=== PATIENT | male | born 1960 | race African-American/Black ===

== ENCOUNTER 2016-06-04 08:54 | Day surgery (SDC) | payer MEDICAID ==
[2016-05-26 09:27] LABS: ABSOLUTE BASOPHILS # (AUTO) 0.1 10^3/uL (0.0-0.2); ABSOLUTE EOSINOPHILS # (AUTO) 0.4 10^3/uL (0.0-0.6); ABSOLUTE LYMPHOCYTES (AUTO) 2.2 10^3/uL (0.5-4.7); ABSOLUTE MONOCYTES (AUTO) 0.6 10^3/uL (0.1-1.4); ABSOLUTE NEUT (AUTO) 4.1 10^3/uL (1.7-8.2); BASOPHILS % (AUTO) 1.3 % (0-2); EOSINOPHILS % (AUTO) 5.5 % (0-6); HEMATOCRIT 43.7 % (37.9-51.0); HEMOGLOBIN 14.3 g/dL (13.5-17.0); HGB HCT DIFFERENCE -0.8; LYMPHOCYTES % (AUTO) 30.3 % (13-45); MEAN CORPUSCULAR HEMOGLOBIN 27.9 pg (27.0-33.4); MEAN CORPUSCULAR HGB CONC 32.7 g/dL (32.0-36.0); MEAN CORPUSCULAR VOLUME 85 fl (80-97); MONOCYTES % (AUTO) 8.2 % (3-13); RED BLOOD COUNT 5.12 10^6/uL (4.35-5.55); RED CELL DISTRIBUTION WIDTH 14.1 % (11.5-14.0); SEGMENTED NEUTROPHILS % (AUTO) 54.7 % (42-78); WHITE BLOOD COUNT 7.4 10^3/uL (4.0-10.5)
[2016-05-26 09:35] LABS: APPEARANCE,URINE CLEAR; BILIRUBIN,URINE NEGATIVE (NEGATIVE); GLUCOSE, URINE NEGATIVE (NEGATIVE); KETONES,URINE NEGATIVE (NEGATIVE); LEUKOCYTE ESTERASE,URINE TRACE (NEGATIVE); NITRITE,URINE NEGATIVE (NEGATIVE); PROTEIN,URINE NEGATIVE (NEGATIVE); URINE SPECIFIC GRAVITY 1.014; UROBILINOGEN,URINE NEGATIVE mg/dL (<2.0)
[2016-05-26 09:58] LABS: ANION GAP 14 (5-19); BLOOD UREA NITROGEN 16 mg/dL (7-20); CALCIUM 9.5 mg/dL (8.4-10.2); CARBON DIOXIDE 23 mmol/L (22-30); CHLORIDE 109 mmol/L (98-107); CREATININE RESULT 0.91 mg/dL (0.52-1.25); GLUCOSE 94 mg/dL (75-110); POTASSIUM 4.7 mmol/L (3.6-5.0); SODIUM 146.2 mmol/L (137-145)
--- NOTE | 2016-05-26 13:31 | EKG REPORT ---
SEVERITY:- NORMAL ECG - SINUS RHYTHM : Confirmed by: Broderick Hammond MD 26-May-2016 13:30:44
[~2016-06-04 08:54] MED LIST: BUPIVACAINE HCL 0.25 % INJ/PF (2.5 MG/1 ML) 30 ML VIAL ONE; CEFAZOLIN 2 GM/D5W RTU 2 GM/50 ML RTUPB IV PRN; FENTANYL CITRATE INJ/PF 100 MCG/2 ML AMPUL ONE; KETAMINE HCL INJ 500 MG/10 ML VIAL ONE; LACTATED RINGERS 1000 ML IV PRN; LIDOCAINE 0.5% INJ-PF (5 MG/ML) 50 ML SDV SUBCUT PRN; LIDOCAINE 1%/EPINEPHRINE INJ 20 ML VIAL ONE; MIDAZOLAM 2 MG/2 ML INJ ONE; PROPOFOL INJ 200 MG/20 ML VIAL IV ONE
[2016-06-04] MEDS ORDERED: MEPERIDINE HCL/PF INJ 25 MG/1 ML DISP.SYRIN IV PRN (09:56)
[2016-06-04] MEDS ORDERED: DIPHENHYDRAMINE HCL 50 MG/ML VIAL IV PRN (09:56)
[2016-06-04] MEDS ORDERED: FENTANYL CITRATE INJ/PF 100 MCG/2 ML AMPUL IV PRN ×3 (09:56)
[2016-06-04] MEDS ORDERED: PROMETHAZINE HCL INJ 25 MG/1 ML VIAL IV PRN ×2 (09:56)
[2016-06-04] MEDS ORDERED: OXYCODONE-ACETAMINOPHEN 5-325 MG TABLET PO PRN ×2 (09:56)
[2016-06-04] MEDS ORDERED: MORPHINE SULFATE 10 MG/ML INJ IV PRN (09:56)
--- NOTE | 2016-06-04 10:17 | Operative Report ---
Operative Report DATE OF SURGERY: 06/04/16 PREOPERATIVE DIAGNOSIS: Right carpal tunnel syndrome OPERATION: Right carpal tunnel release SURGEON: NONI MICHAEL ANESTHESIA: LMAC ESTIMATED BLOOD LOSS: minimal PROCEDURE: With the patient supine on the operative table the right upper extremity is prepped and draped in sterile fashion. The skin overlying the right volar radiocarpal crease is insufflated with accommodation of Xylocaine, Marcaine, and epinephrine. Incision is made beginning proximally along the interval lateral to the palmaris longus obliquely across wrist crease and then into the thenar crease. Sharp dissection was used to expose the underlying flexor retinaculum. A [place] [facility] is placed underneath the flexor retinaculum and this is divided with a 15 blade. The carpal tunnel was probed is felt that there was no further constriction on the median nerve. This point the wounds irrigated. Hemostasis obtained with bipolar cautery. The wound is reapproximated using interrupted nylon. A sterile compressive dressing was applied and the patient' s returned to the PACU in satisfactory condition.
[2016-06-04] MEDS ORDERED: FENTANYL CITRATE INJ/PF 100 MCG/2 ML AMPUL ONE (10:32)
[2016-06-04] MEDS ORDERED: ACETAMINOPHEN 100 ML IV ONE (10:54)
[2016-06-04] MEDS ORDERED: CARVEDILOL 12.5 MG TABLET PO ONE (11:00)
[2016-06-04] MEDS ORDERED: ONDANSETRON HCL INJ/PF 4 MG/2 ML SDV IV PRN (11:28)
[2016-06-04] MEDS ORDERED: OXYCODONE HCL IR 5 MG TABLET PO PRN (11:28)
[2016-06-04] MEDS ORDERED: LIDOCAINE 2% INJ-PF (20 MG/ML) 10 ML AMPUL ONE (11:53)
[2016-06-04] MEDS ORDERED: DEXAMETHASONE SOD PHOSPHATE INJ 4 MG/1 ML VIAL ONE (11:53)
[2016-06-04 12:39] VITALS: BP 142/84
== END 2016-06-04 12:25 | disposition home or self-care (01) ==
LOC: OROUT 08:54
PROVIDERS: ATTEND Orthopaedic Surgery
PROC: 01N50ZZ Release Median Nerve, Open Approach (ICD-10-PCS; principal; 2016-06-04 10:30)
DX: G56.01 Carpal tunnel syndrome, right upper limb (principal); J44.9 Chronic obstructive pulmonary disease, unspecified; M19.90 Unspecified osteoarthritis, unspecified site; E78.5 Hyperlipidemia, unspecified; I10 Essential (primary) hypertension; F17.210 Nicotine dependence, cigarettes, uncomplicated; Z79.82 Long term (current) use of aspirin; Z79.51 Long term (current) use of inhaled steroids; Z79.899 Other long term (current) drug therapy; Z88.6 Allergy status to analgesic agent
CPT/HCPCS: 93005; 36415 ×2; 84132; 85025; 80048; 81001; 71020; 93010; 64721; J2250; J1100; J3010; J3490 ×3; S0020; J2704; J0690; J0131; 1810

== ENCOUNTER 2016-06-22 15:09 | Emergency (ER) | payer MEDICAID ==
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
[2016-06-22] MEDS ORDERED: IPRATROPIUM/ALBUTEROL 0.5-2.5 MG/3 ML AMPUL NEB ONE (16:28)
[2016-06-22] MEDS ORDERED: PREDNISONE 20 MG TABLET PO ONE (16:28)
[2016-06-22] MEDS ORDERED: ALBUTEROL SULFATE 0.083% NEB 2.5 MG/3 ML AMPUL NEB ONE (16:29)
--- NOTE | 2016-06-22 16:35 | EKG REPORT ---
SEVERITY:- OTHERWISE NORMAL ECG - SINUS RHYTHM LOW VOLTAGE IN FRONTAL LEADS : Confirmed by: Broderick Hammond MD 22-Jun-2016 16:34:33
[2016-06-22 17:41] LABS: ABSOLUTE BASOPHILS # (AUTO) 0.1 10^3/uL (0.0-0.2); ABSOLUTE EOSINOPHILS # (AUTO) 0.3 10^3/uL (0.0-0.6); ABSOLUTE LYMPHOCYTES (AUTO) 1.3 10^3/uL (0.5-4.7); ABSOLUTE MONOCYTES (AUTO) 0.7 10^3/uL (0.1-1.4); BASOPHILS % (AUTO) 0.8 % (0-2); EOSINOPHILS % (AUTO) 3.1 % (0-6); HEMOGLOBIN 14.2 g/dL (13.5-17.0); HGB HCT DIFFERENCE -0.4; LYMPHOCYTES % (AUTO) 13.4 % (13-45); MEAN CORPUSCULAR VOLUME 85 fl (80-97); MONOCYTES % (AUTO) 7.2 % (3-13); RED BLOOD COUNT 5.08 10^6/uL (4.35-5.55); RED CELL DISTRIBUTION WIDTH 13.9 % (11.5-14.0); SEGMENTED NEUTROPHILS % (AUTO) 75.5 % (42-78); WHITE BLOOD COUNT 9.3 10^3/uL (4.0-10.5)
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
[2016-06-22 19:17] LABS: ALANINE AMINOTRANSFERASE 33 U/L (21-72); ALBUMIN 4.2 g/dL (3.5-5.0); ALKALINE PHOSPHATASE 68 U/L (38-126); ANION GAP 10 (5-19); ASPARTATE AMINO TRANSFERASE 37 U/L (17-59); BILIRUBIN,DIRECT 0.5 mg/dL (0.0-0.4); BLOOD UREA NITROGEN 13 mg/dL (7-20); CALCIUM 9.3 mg/dL (8.4-10.2); CARBON DIOXIDE 24 mmol/L (22-30); CHLORIDE 107 mmol/L (98-107); CREATINE KINASE 382 U/L (55-170); CREATININE RESULT 0.85 mg/dL (0.52-1.25); GLUCOSE 106 mg/dL (75-110); POTASSIUM 4.2 mmol/L (3.6-5.0); SODIUM 140.9 mmol/L (137-145); TOTAL PROTEIN 7.6 g/dL (6.3-8.2)
[2016-06-22 19:29] LABS: CREATINE KINASE MB 0.68 ng/mL (<4.55)
[2016-06-22 19:30] LABS: TROPONIN I < 0.012 ng/mL
[2016-06-22 20:38] VITALS: BP 139/80
== END 2016-06-22 20:40 | disposition home or self-care (01) ==
LOC: ER 15:09
DX: J44.1 Chronic obstructive pulmonary disease with (acute) exacerbation (principal); R07.9 Chest pain, unspecified; F17.200 Nicotine dependence, unspecified, uncomplicated; E78.00 Pure hypercholesterolemia, unspecified; I10 Essential (primary) hypertension; Z88.6 Allergy status to analgesic agent; Z85.828 Personal history of other malignant neoplasm of skin; Z85.118 Personal history of other malignant neoplasm of bronchus and lung; I25.2 Old myocardial infarction
CPT/HCPCS: 93005; 94640; 99284; 36415; 82553; 82550; 85025; 80053; 84484; 71020; 93010; J7512

== ENCOUNTER 2016-07-10 07:08 | Emergency (ER) | payer MEDICAID ==
[2016-07-10] MEDS ORDERED: DIAZEPAM 5 MG TABLET PO ONE (07:25)
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
[2016-07-10] MEDS ORDERED: KETOROLAC TROMETHAMINE 60 MG/2 ML SDV IM ONE (08:29)
[2016-07-10 08:45] VITALS: BP 140/74
== END 2016-07-10 08:45 | disposition home or self-care (01) ==
LOC: ER 07:08
DX: M43.6 Torticollis (principal); M54.2 Cervicalgia; M62.838 Other muscle spasm; I25.2 Old myocardial infarction; I10 Essential (primary) hypertension; J44.9 Chronic obstructive pulmonary disease, unspecified; F17.210 Nicotine dependence, cigarettes, uncomplicated; Z85.118 Personal history of other malignant neoplasm of bronchus and lung; Z85.828 Personal history of other malignant neoplasm of skin; Z88.5 Allergy status to narcotic agent
CPT/HCPCS: 99283; 96372; J3490; J1885

== ENCOUNTER 2016-08-25 11:06 | Emergency (ER) | payer MEDICAID ==
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
[2016-08-25 13:13] VITALS: BP 127/75
== END 2016-08-25 13:13 | disposition home or self-care (01) ==
LOC: ER 11:06
DX: S46.911A Strain of unspecified muscle, fascia and tendon at shoulder and upper arm level, right arm, initial encounter (principal); S50.11XA Contusion of right forearm, initial encounter; M25.511 Pain in right shoulder; M25.521 Pain in right elbow; V86.99XA Unspecified occupant of other special all-terrain or other off-road motor vehicle injured in nontraffic accident, initial encounter; F17.200 Nicotine dependence, unspecified, uncomplicated
CPT/HCPCS: 99283

== ENCOUNTER 2016-09-12 14:55 | Emergency (ER) | payer MEDICAID ==
[2016-09-12] MEDS ORDERED: NORMAL SALINE 1000 ML 2,000 ML IV ONE (15:03)
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
[2016-09-12] MEDS ORDERED: IPRATROPIUM/ALBUTEROL 0.5-2.5 MG/3 ML AMPUL NEB ONE (15:13)
[2016-09-12] MEDS ORDERED: NORMAL SALINE 1000 ML 1,000 ML IV PRN (15:13)
[2016-09-12] MEDS ORDERED: METHYLPREDNISOLONE INJ 125 MG/2 ML SDV IV ONE (15:13)
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
[2016-09-12 15:43] LABS: ABSOLUTE BASOPHILS # (AUTO) 0.1 10^3/uL (0.0-0.2); ABSOLUTE EOSINOPHILS # (AUTO) 0.3 10^3/uL (0.0-0.6); ABSOLUTE LYMPHOCYTES (AUTO) 2.5 10^3/uL (0.5-4.7); ABSOLUTE MONOCYTES (AUTO) 0.5 10^3/uL (0.1-1.4); ABSOLUTE NEUT (AUTO) 3.2 10^3/uL (1.7-8.2); BASOPHILS % (AUTO) 1.2 % (0-2); EOSINOPHILS % (AUTO) 4.8 % (0-6); HEMATOCRIT 45.9 % (37.9-51.0); HEMOGLOBIN 15.3 g/dL (13.5-17.0); LYMPHOCYTES % (AUTO) 37.4 % (13-45); MEAN CORPUSCULAR HEMOGLOBIN 28.5 pg (27.0-33.4); MEAN CORPUSCULAR HGB CONC 33.2 g/dL (32.0-36.0); MEAN CORPUSCULAR VOLUME 86 fl (80-97); MONOCYTES % (AUTO) 8.1 % (3-13); RED BLOOD COUNT 5.36 10^6/uL (4.35-5.55); RED CELL DISTRIBUTION WIDTH 14.7 % (11.5-14.0); SEGMENTED NEUTROPHILS % (AUTO) 48.5 % (42-78); WHITE BLOOD COUNT 6.7 10^3/uL (4.0-10.5)
--- NOTE | 2016-09-12 15:55 | RADIOLOGY REPORT (SQ) ---
EXAM DESCRIPTION: CHEST SINGLE VIEW COMPLETED DATE/TIME: 09/12/2016 3:41 pm REASON FOR STUDY: sob COMPARISON: 06/22/2016 EXAM PARAMETERS: NUMBER OF VIEWS: One view. TECHNIQUE: Single frontal radiographic view of the chest acquired. RADIATION DOSE: NA LIMITATIONS: None. FINDINGS: LUNGS AND PLEURA: Mild subsegmental atelectasis in the left lower lobe. MEDIASTINUM AND HILAR STRUCTURES: No masses. Contour normal. HEART AND VASCULAR STRUCTURES: Heart normal in size. Normal vasculature. BONES: No acute findings. HARDWARE: None in the chest. OTHER: No other significant finding. IMPRESSION: NO ACUTE RADIOGRAPHIC FINDING IN THE CHEST. TECHNICAL DOCUMENTATION: JOB ID: [id number]
[2016-09-12 16:01] LABS: ALANINE AMINOTRANSFERASE 39 U/L (21-72); ALBUMIN 5.2 g/dL (3.5-5.0); ALKALINE PHOSPHATASE 71 U/L (38-126); ANION GAP 18 (5-19); ASPARTATE AMINO TRANSFERASE 44 U/L (17-59); BILIRUBIN,DIRECT 0.4 mg/dL (0.0-0.4); BILIRUBIN,TOTAL 0.7 mg/dL (0.2-1.3); BLOOD UREA NITROGEN 22 mg/dL (7-20); CALCIUM 10.2 mg/dL (8.4-10.2); CARBON DIOXIDE 19 mmol/L (22-30); CHLORIDE 110 mmol/L (98-107); CREATINE KINASE 301 U/L (55-170); CREATININE RESULT 1.79 mg/dL (0.52-1.25); GLUCOSE 133 mg/dL (75-110); POTASSIUM 4.7 mmol/L (3.6-5.0); SODIUM 146.8 mmol/L (137-145); TOTAL PROTEIN 9.1 g/dL (6.3-8.2)
[2016-09-12 16:13] LABS: CREATINE KINASE MB 1.04 ng/mL (<4.55)
[2016-09-12 16:15] LABS: TROPONIN I < 0.012 ng/mL
[2016-09-12 18:07] VITALS: BP 104/82
[2016-09-12 19:19] LABS: APPEARANCE,URINE SLIGHTLY-CLOUDY; BILIRUBIN,URINE NEGATIVE (NEGATIVE); GLUCOSE, URINE NEGATIVE (NEGATIVE); KETONES,URINE NEGATIVE (NEGATIVE); LEUKOCYTE ESTERASE,URINE SMALL (NEGATIVE); NITRITE,URINE NEGATIVE (NEGATIVE); PROTEIN,URINE 30 mg/dL (NEGATIVE); URINE SPECIFIC GRAVITY 1.013; UROBILINOGEN,URINE NEGATIVE mg/dL (<2.0)
== END 2016-09-12 18:52 | disposition home or self-care (01) ==
LOC: ER 14:55
DX: T67.5XXA Heat exhaustion, unspecified, initial encounter (principal); X30.XXXA Exposure to excessive natural heat, initial encounter; Y93.H9 Activity, other involving exterior property and land maintenance, building and construction; E86.0 Dehydration; J44.1 Chronic obstructive pulmonary disease with (acute) exacerbation; R55 Syncope and collapse; I95.9 Hypotension, unspecified; I10 Essential (primary) hypertension; E11.9 Type 2 diabetes mellitus without complications; R06.02 Shortness of breath; I25.2 Old myocardial infarction; R61 Generalized hyperhidrosis; R00.1 Bradycardia, unspecified; Z88.5 Allergy status to narcotic agent; Z85.118 Personal history of other malignant neoplasm of bronchus and lung; Z85.828 Personal history of other malignant neoplasm of skin
CPT/HCPCS: 94640; 99285; 96374; 36415; 82553; 82550; 85025; 80053; 81001; 84484; 71010; J2930; J7620

== ENCOUNTER 2017-01-05 21:36 | Observation (INO) | payer MEDICAID ==
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
[2017-01-05 22:55] LABS: ABSOLUTE BASOPHILS # (AUTO) 0.1 10^3/uL (0.0-0.2); ABSOLUTE EOSINOPHILS # (AUTO) 0.3 10^3/uL (0.0-0.6); ABSOLUTE LYMPHOCYTES (AUTO) 2.7 10^3/uL (0.5-4.7); ABSOLUTE MONOCYTES (AUTO) 0.6 10^3/uL (0.1-1.4); ABSOLUTE NEUT (AUTO) 3.7 10^3/uL (1.7-8.2); BASOPHILS % (AUTO) 1.1 % (0-2); EOSINOPHILS % (AUTO) 3.5 % (0-6); HEMATOCRIT 40.3 % (37.9-51.0); HEMOGLOBIN 13.4 g/dL (13.5-17.0); HGB HCT DIFFERENCE -0.1; MEAN CORPUSCULAR HEMOGLOBIN 28.5 pg (27.0-33.4); MEAN CORPUSCULAR HGB CONC 33.2 g/dL (32.0-36.0); MEAN CORPUSCULAR VOLUME 86 fl (80-97); MONOCYTES % (AUTO) 8.6 % (3-13); RED CELL DISTRIBUTION WIDTH 15.8 % (11.5-14.0); SEGMENTED NEUTROPHILS % (AUTO) 49.8 % (42-78); WHITE BLOOD COUNT 7.4 10^3/uL (4.0-10.5)
[2017-01-05 23:13] LABS: ALANINE AMINOTRANSFERASE 39 U/L (21-72); ALBUMIN 4.3 g/dL (3.5-5.0); ALKALINE PHOSPHATASE 59 U/L (38-126); ANION GAP 14 (5-19); ASPARTATE AMINO TRANSFERASE 34 U/L (17-59); BILIRUBIN,DIRECT 0.3 mg/dL (0.0-0.4); BILIRUBIN,TOTAL 0.6 mg/dL (0.2-1.3); BLOOD UREA NITROGEN 11 mg/dL (7-20); CALCIUM 9.2 mg/dL (8.4-10.2); CARBON DIOXIDE 21 mmol/L (22-30); CHLORIDE 109 mmol/L (98-107); CREATINE KINASE 218 U/L (55-170); CREATININE RESULT 0.89 mg/dL (0.52-1.25); GLUCOSE 94 mg/dL (75-110); POTASSIUM 4.1 mmol/L (3.6-5.0); TOTAL PROTEIN 6.9 g/dL (6.3-8.2)
--- NOTE | 2017-01-05 23:23 | EKG REPORT ---
SEVERITY:- NORMAL ECG - SINUS RHYTHM : Confirmed by: Lela Thomas 05-Jan-2017 23:22:17
[2017-01-05 23:25] LABS: CREATINE KINASE MB 0.95 ng/mL (<4.55)
[2017-01-05 23:29] LABS: TROPONIN I < 0.012 ng/mL
--- NOTE | 2017-01-05 23:49 | RADIOLOGY REPORT (SQ) ---
EXAM DESCRIPTION: CHEST SINGLE VIEW COMPLETED DATE/TIME: 01/05/2017 10:50 pm REASON FOR STUDY: chest pain COMPARISON: 09/12/2016. EXAM PARAMETERS: NUMBER OF VIEWS: One view. TECHNIQUE: Single frontal radiographic view of the chest acquired. RADIATION DOSE: NA LIMITATIONS: None. FINDINGS: LUNGS AND PLEURA: Small bibasilar atelectasis or scar. MEDIASTINUM AND HILAR STRUCTURES: No masses. Contour normal. HEART AND VASCULAR STRUCTURES: Heart normal in size. Normal vasculature. BONES: No acute findings. HARDWARE: None in the chest. OTHER: No other significant finding. IMPRESSION: NO ACUTE RADIOGRAPHIC FINDING IN THE CHEST. TECHNICAL DOCUMENTATION: JOB ID: [id number] [employer]- All Rights Reserved
[2017-01-05] MEDS ORDERED: NITROGLYCERIN 2% OINTMENT 1 GM PACKET TP ONE (23:53)
[2017-01-05] MEDS ORDERED: ASPIRIN 325 MG TABLET PO ONE (23:53)
[2017-01-06] MEDS ORDERED: NITROGLYCERIN 0.4 MG/TAB 25 TAB/BOTTLE SL PRN (01:02)
[2017-01-06] MEDS ORDERED: ONDANSETRON HCL INJ/PF 4 MG/2 ML SDV IV PRN (01:05)
[2017-01-06] MEDS ORDERED: ACETAMINOPHEN 325 MG TABLET PO PRN (01:07)
[2017-01-06] MEDS ORDERED: ZOLPIDEM TARTRATE 5 MG TABLET PO PRN (01:08)
[2017-01-06 05:30] LABS: ABSOLUTE BASOPHILS # (AUTO) 0.1 10^3/uL (0.0-0.2); ABSOLUTE EOSINOPHILS # (AUTO) 0.3 10^3/uL (0.0-0.6); ABSOLUTE LYMPHOCYTES (AUTO) 2.2 10^3/uL (0.5-4.7); ABSOLUTE MONOCYTES (AUTO) 0.7 10^3/uL (0.1-1.4); ABSOLUTE NEUT (AUTO) 3.6 10^3/uL (1.7-8.2); BASOPHILS % (AUTO) 1.6 % (0-2); EOSINOPHILS % (AUTO) 3.8 % (0-6); LYMPHOCYTES % (AUTO) 31.5 % (13-45); MEAN CORPUSCULAR HEMOGLOBIN 28.5 pg (27.0-33.4); MEAN CORPUSCULAR HGB CONC 33.4 g/dL (32.0-36.0); MEAN CORPUSCULAR VOLUME 85 fl (80-97); MONOCYTES % (AUTO) 9.9 % (3-13); RED BLOOD COUNT 4.58 10^6/uL (4.35-5.55); RED CELL DISTRIBUTION WIDTH 15.4 % (11.5-14.0); SEGMENTED NEUTROPHILS % (AUTO) 53.2 % (42-78); WHITE BLOOD COUNT 6.9 10^3/uL (4.0-10.5)
[2017-01-06 05:57] LABS: ANION GAP 12 (5-19); BLOOD UREA NITROGEN 11 mg/dL (7-20); CALCIUM 9.3 mg/dL (8.4-10.2); CARBON DIOXIDE 25 mmol/L (22-30); CHLORIDE 106 mmol/L (98-107); CHOLESTEROL 235.52 mg/dL (0-200); CREATININE RESULT 0.86 mg/dL (0.52-1.25); Direct HDL 76 mg/dL (>40); GLUCOSE 97 mg/dL (75-110); POTASSIUM 4.2 mmol/L (3.6-5.0); TRIGLYCERIDES 157 mg/dL (<150)
[2017-01-06] MEDS ORDERED: LANSOPRAZOLE 30 MG TAB.RAP.DR PO SCH (06:00)
[2017-01-06 06:13] LABS: DIRECT LDL 141 mg/dL (<100)
[2017-01-06 06:15] LABS: CREATINE KINASE MB 0.71 ng/mL (<4.55)
[2017-01-06 06:18] LABS: TROPONIN I < 0.012 ng/mL; VLDL CHOLESTEROL 31.4 mg/dL (10-31)
[2017-01-06] MEDS: OXYCODONE HCL IR 5 MG TABLET PO PRN ×2 (08:37→16:48)
[2017-01-06] MEDS: METHOCARBAMOL 500 MG TABLET PO PRN ×2 (08:37→16:48)
[2017-01-06] MEDS ORDERED: HYDROCHLOROTHIAZIDE 25 MG TABLET PO SCH (10:00)
[2017-01-06] MEDS ORDERED: LORATADINE 10 MG TABLET PO SCH (10:00)
[2017-01-06] MEDS ORDERED: (PENDING PHARMACY ID) (Lisinopril/Hydrochlorothiazide [Lisinopril-Hctz 20-25 Mg Tab] 1 TAB PO SCH (10:00)
[2017-01-06] MEDS ORDERED: ASPIRIN 81 MG TABLET, CHEWABLE PO SCH (10:00)
[2017-01-06] MEDS ORDERED: CARVEDILOL 12.5 MG TABLET PO SCH (10:00)
[2017-01-06] MEDS ORDERED: LISINOPRIL 10 MG TABLET PO SCH (10:00)
[2017-01-06] MEDS ORDERED: ENOXAPARIN SODIUM INJ 40 MG/0.4 ML DISP.SYRIN SUBCUT SCH (10:00)
[2017-01-06] MEDS ORDERED: BUDESONIDE/FORMOTEROL 160-4.5 MCG 60 PUFF/6 GM MDI IH SCH (10:00)
[2017-01-06] MEDS ORDERED: AMLODIPINE BESYLATE 5 MG TABLET PO SCH (10:00)
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
[2017-01-06 11:40] LABS: CREATINE KINASE MB 0.68 ng/mL (<4.55)
[2017-01-06 11:45] LABS: TROPONIN I < 0.012 ng/mL
--- NOTE | 2017-01-06 15:18 | PDOC DISCHARGE SUMMARY ---
General - Admit/Disc Date/PCP Admission Date/Primary Care Provider: 01/06/17 00:19 RAFIA KRISHNAMURTHY Discharge Date: 01/06/17 - Discharge Diagnosis (1) Chest pain Is this a current diagnosis for this admission?: Yes (2) Hypertension Is this a current diagnosis for this admission?: Yes (3) Hyperlipidemia Is this a current diagnosis for this admission?: Yes (4) COPD (chronic obstructive pulmonary disease) Is this a current diagnosis for this admission?: Yes (5) Reflux esophagitis Is this a current diagnosis for this admission?: Yes (6) Back pain Is this a current diagnosis for this admission?: Yes (7) Rhinitis, allergic Is this a current diagnosis for this admission?: Yes (8) Cigarette smoker Is this a current diagnosis for this admission?: Yes (9) DVT prophylaxis Is this a current diagnosis for this admission?: Yes - Additional Information Home Medications: Albuterol Sulfate [Proair HFA] 2 puff IH Q6HP PRN 01/06/17 Amlodipine Besylate [Norvasc 5 mg Tablet] 5 mg PO DAILY 01/06/17 Aspirin [Aspirin EC] 81 mg PO DAILY 01/06/17 Atorvastatin Calcium [Lipitor 40 mg Tablet] 40 mg PO QPM 01/06/17 Budesonide/Formoterol Fumarate [Symbicort HFA 160-4.5 mcg Inhaler 6 gm] 2 puff IH Q12 01/06/17 Carvedilol [Coreg 25 mg Tablet] 25 mg PO Q12 01/06/17 Ergocalciferol (Vitamin D2) [Drisdol 50,000 unit (1.25MG) Capsule] 50,000 units PO MO 01/06/17 Lisinopril/Hydrochlorothiazide [Zestoretic 20-25 mg Tablet] 1 tab PO DAILY 01/06 Loratadine [Claritin 10 mg Tablet] 10 mg PO DAILY 01/06/17 Methocarbamol [Robaxin 500 mg Tablet] 500 mg PO TID 01/06/17 Nitroglycerin [Nitrostat] 0.4 mg SL Q5MP PRN 01/06/17 Omeprazole 20 mg PO DAILY 01/06/17 Oxycodone HCl [Oxycodone HCl 10 MG Tablet] 10 mg PO Q6HP PRN 01/06/17 History of Present Illness History of Present Illness: TONE PATEL is a 56 year old male with hx of HTN/Hyperlipidemia/COPD/GERD /Rhinitis/Back pain/Osteoarthritis/Chronic smoker, who was last seen in my office on 10/02/2016 and had informed me he was moving to [facility].I got a call from ER doctor around midnight that pt came to the ER with chief complaint of left sided chest pain that started1-2 hours earlier assoc. with dyspnea and dizziness. denied palpitations, diaphoresis, syncope, nausea/ vomiting. He was started on Nitro paste at ER and he felt better. He was admitted for 23 hour observation to rule out VT. Hospital Course Hospital Course: 56 year old man who was admitted for chest pain at telemetry floor for 23 hour observation. He had serial EKG and cardiac enzymes and VT was ruled out. He is chest pain free and he will be discharged home today to follow up with with PCP to arrange for outpatient Lexican stress test with [employer] for further risk stratification. Physical Exam Vital Signs: Temp Pulse Resp BP Pulse Ox 97.6 F 67 19 133/76 H 96 01/06/17 11:36 01/06/17 14:00 01/06/17 11:36 01/06/17 11:36 01/06/17 11:36 Intake & Output 01/05/17 01/06/17 01/07/17 06:59 06:59 06:59 Intake Total 10 998 Balance 10 998 Weight 78 kg General appearance: PRESENT: no acute distress, cooperative, well-developed, well-nourished Head exam: PRESENT: atraumatic, normocephalic Eye exam: PRESENT: EOMI, PERRLA Ear exam: PRESENT: normal external ear exam, TM's normal bilaterally Mouth exam: PRESENT: moist, neck supple, tongue midline Neck exam: PRESENT: full ROM Respiratory exam: PRESENT: clear to auscultation niki, symmetrical Cardiovascular exam: PRESENT: +S1, +S2 Pulses: PRESENT: +2 pedal pulses bilateral Vascular exam: PRESENT: normal capillary refill GI/Abdominal exam: PRESENT: normal bowel sounds, soft Rectal exam: PRESENT: deferred Neurological exam: PRESENT: alert, awake, oriented to person, oriented to place , oriented to time Psychiatric exam: PRESENT: normal mood Results Laboratory Results: 01/06/17 04:57 01/06/17 04:57 01/06/17 01/06/17 01/06/17 04:57 04:57 04:57 WBC 6.9 RBC 4.58 Hgb 13.0 L Hct 39.0 MCV 85 MCH 28.5 MCHC 33.4 RDW 15.4 H Plt Count 258 Seg Neutrophils % 53.2 Lymphocytes % 31.5 Monocytes % 9.9 Eosinophils % 3.8 Basophils % 1.6 Absolute Neutrophils 3.6 Absolute Lymphocytes 2.2 Absolute Monocytes 0.7 Absolute Eosinophils 0.3 Absolute Basophils 0.1 Sodium 143.0 Potassium 4.2 Chloride 106 Carbon Dioxide 25 Anion Gap 12 BUN 11 Creatinine 0.86 Est GFR ( Amer) > 60 Est GFR (Non-Af Amer) > 60 Glucose 97 Calcium 9.3 Triglycerides 157 H Cholesterol 235.52 H LDL Cholesterol Direct 141 H VLDL Cholesterol 31.4 H HDL Cholesterol 76 TSH 3.68 01/06/17 01/06/17 01/06/17 04:57 04:57 10:48 Creatine Kinase 193 H 215 H CK-MB (CK-2) 0.71 Troponin I < 0.012 01/06/17 10:48 Creatine Kinase CK-MB (CK-2) 0.68 Troponin I < 0.012 Impressions: Chest X-Ray 01/05/17 22:33 IMPRESSION: NO ACUTE RADIOGRAPHIC FINDING IN THE CHEST.
[2017-01-06 17:34] VITALS: BP 111/67
--- NOTE | 2017-01-06 21:15 | EKG REPORT ---
SEVERITY:- NORMAL ECG - SINUS RHYTHM : Confirmed by: Haydee Ojeda MD 06-Jan-2017 21:14:43
--- NOTE | 2017-01-06 21:15 | EKG REPORT ---
SEVERITY:- NORMAL ECG - SINUS RHYTHM : Confirmed by: Haydee Ojeda MD 06-Jan-2017 21:14:50
[2017-01-06] MEDS ORDERED: ATORVASTATIN CALCIUM 20 MG TABLET PO SCH (22:00)
== END 2017-01-06 17:38 | disposition home or self-care (01) ==
LOC: ER 21:36 → EH 01-06 00:19 → 3S 01-06 01:35
PROVIDERS: ADMIT Internal Medicine; ATTEND Internal Medicine
PROC: HZ31ZZZ Individual Counseling for Substance Abuse Treatment, Behavioral (ICD-10-PCS; principal; 2017-01-06)
DX: R07.9 Chest pain, unspecified (principal); I10 Essential (primary) hypertension; E78.2 Mixed hyperlipidemia; J44.9 Chronic obstructive pulmonary disease, unspecified; K21.0 Gastro-esophageal reflux disease with esophagitis; M54.9 Dorsalgia, unspecified; J30.9 Allergic rhinitis, unspecified; F17.210 Nicotine dependence, cigarettes, uncomplicated; M19.90 Unspecified osteoarthritis, unspecified site; R20.0 Anesthesia of skin; R20.2 Paresthesia of skin; I25.2 Old myocardial infarction; Z79.82 Long term (current) use of aspirin; Z79.899 Other long term (current) drug therapy; Z85.118 Personal history of other malignant neoplasm of bronchus and lung; Z82.49 Family history of ischemic heart disease and other diseases of the circulatory system; Z80.1 Family history of malignant neoplasm of trachea, bronchus and lung; Z82.3 Family history of stroke; Z85.828 Personal history of other malignant neoplasm of skin
CPT/HCPCS: 93005 ×2; 99285; 36415 ×2; 82553 ×2; 82550 ×2; 84443; 85025 ×2; 80048; 80053; 84484 ×2; 80061; 71010; 93010 ×2; 99406; J3490 ×8; J1650; G0378

== ENCOUNTER 2017-03-24 17:18 | Emergency (ER) | payer MEDICAID ==
[2017-03-24] MEDS ORDERED: OXYCODONE-ACETAMINOPHEN 5-325 MG TABLET PO ONE (18:26)
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
--- NOTE | 2017-03-24 18:51 | RADIOLOGY REPORT (SQ) ---
EXAM DESCRIPTION: HAND LEFT 3 VIEWS COMPLETED DATE/TIME: 03/24/2017 6:36 pm REASON FOR STUDY: trauma COMPARISON: None. EXAM PARAMETERS: NUMBER OF VIEWS: Three views. TECHNIQUE: AP, lateral and oblique radiographic images acquired of the left hand. LIMITATIONS: None. FINDINGS: MINERALIZATION: Normal. BONES: Old amputations of the distal phalanges of the 2nd and 4th digits. No acute fractures. JOINTS: No effusions. SOFT TISSUES: No soft tissue swelling. No foreign body. OTHER: No other significant finding. IMPRESSION: No acute posttraumatic changes. 

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
[2017-03-24 21:16] VITALS: BP 138/82
== END 2017-03-24 21:16 | disposition home or self-care (01) ==
LOC: ER 17:18
DX: S56.129A Laceration of flexor muscle, fascia and tendon of unspecified finger at forearm level, initial encounter (principal); S61.233A Puncture wound without foreign body of left middle finger without damage to nail, initial encounter; S60.312A Abrasion of left thumb, initial encounter; W25.XXXA Contact with sharp glass, initial encounter; Y93.89 Activity, other specified; Y92.009 Unspecified place in unspecified non-institutional (private) residence as the place of occurrence of the external cause; J44.9 Chronic obstructive pulmonary disease, unspecified; I10 Essential (primary) hypertension; I25.2 Old myocardial infarction; F17.200 Nicotine dependence, unspecified, uncomplicated; Z88.5 Allergy status to narcotic agent; Z85.118 Personal history of other malignant neoplasm of bronchus and lung; Z85.828 Personal history of other malignant neoplasm of skin
CPT/HCPCS: 99283

== ENCOUNTER 2017-03-31 10:24 | Day surgery (SDC) | payer MEDICAID ==
[2017-03-30 12:02] LABS: ABSOLUTE BASOPHILS # (AUTO) 0.1 10^3/uL (0.0-0.2); ABSOLUTE EOSINOPHILS # (AUTO) 0.4 10^3/uL (0.0-0.6); ABSOLUTE LYMPHOCYTES (AUTO) 2.3 10^3/uL (0.5-4.7); ABSOLUTE MONOCYTES (AUTO) 0.7 10^3/uL (0.1-1.4); ABSOLUTE NEUT (AUTO) 2.9 10^3/uL (1.7-8.2); BASOPHILS % (AUTO) 1.2 % (0-2); EOSINOPHILS % (AUTO) 5.9 % (0-6); HEMOGLOBIN 14.5 g/dL (13.5-17.0); LYMPHOCYTES % (AUTO) 35.9 % (13-45); MEAN CORPUSCULAR HEMOGLOBIN 28.6 pg (27.0-33.4); MEAN CORPUSCULAR HGB CONC 32.9 g/dL (32.0-36.0); MEAN CORPUSCULAR VOLUME 87 fl (80-97); MONOCYTES % (AUTO) 10.3 % (3-13); PLATELET COUNT 326 10^3/uL (150-450); RED BLOOD COUNT 5.06 10^6/uL (4.35-5.55); RED CELL DISTRIBUTION WIDTH 14.7 % (11.5-14.0); SEGMENTED NEUTROPHILS % (AUTO) 46.7 % (42-78); TOTAL CELLS COUNTED % (AUTO) 100 %; WHITE BLOOD COUNT 6.3 10^3/uL (4.0-10.5)
[2017-03-30 12:10] LABS: APPEARANCE,URINE SLIGHTLY-CLOUDY; BILIRUBIN,URINE NEGATIVE (NEGATIVE); COLOR,URINE YELLOW; GLUCOSE, URINE NEGATIVE (NEGATIVE); KETONES,URINE NEGATIVE (NEGATIVE); LEUKOCYTE ESTERASE,URINE SMALL (NEGATIVE); NITRITE,URINE NEGATIVE (NEGATIVE); PROTEIN,URINE NEGATIVE (NEGATIVE); URINE SPECIFIC GRAVITY 1.019; UROBILINOGEN,URINE NEGATIVE mg/dL (<2.0)
[2017-03-30 12:30] LABS: ALANINE AMINOTRANSFERASE 36 U/L (21-72); ALBUMIN 4.6 g/dL (3.5-5.0); ALKALINE PHOSPHATASE 56 U/L (38-126); ANION GAP 14 (5-19); ASPARTATE AMINO TRANSFERASE 40 U/L (17-59); BILIRUBIN,DIRECT 0.4 mg/dL (0.0-0.4); BILIRUBIN,TOTAL 0.4 mg/dL (0.2-1.3); BLOOD UREA NITROGEN 15 mg/dL (7-20); CALCIUM 9.8 mg/dL (8.4-10.2); CARBON DIOXIDE 21 mmol/L (22-30); CHLORIDE 108 mmol/L (98-107); GLUCOSE 89 mg/dL (75-110); POTASSIUM 4.9 mmol/L (3.6-5.0); SODIUM 143.2 mmol/L (137-145); TOTAL PROTEIN 7.4 g/dL (6.3-8.2)
--- NOTE | 2017-03-30 15:20 | EKG REPORT ---
SEVERITY:- NORMAL ECG - SINUS RHYTHM : Confirmed by: Lela Thomas 30-Mar-2017 15:19:51
--- NOTE | 2017-03-30 15:41 | RADIOLOGY REPORT (SQ) ---
EXAM DESCRIPTION: CHEST PA/LATERAL COMPLETED DATE/TIME: 03/30/2017 11:54 am REASON FOR STUDY: PRE OP COMPARISON: 01/05/2017 EXAM PARAMETERS: NUMBER OF VIEWS: two views TECHNIQUE: Digital Frontal and Lateral radiographic views of the chest acquired. RADIATION DOSE: NA LIMITATIONS: none FINDINGS: LUNGS AND PLEURA: Minimal right basilar atelectasis or scarring similar to prior study. N o acute opacities, masses or pneumothorax. No pleural effusion. MEDIASTINUM AND HILAR STRUCTURES: No masses or contour abnormalities. HEART AND VASCULAR STRUCTURES: Heart normal size. No evidence for failure. BONES: No acute findings. HARDWARE: None in the chest. OTHER: No other significant finding. IMPRESSION: No evidence of acute cardiopulmonary disease. TECHNICAL DOCUMENTATION: JOB ID: [id number] [employer]- All Rights Reserved
[~2017-03-31 10:24] MED LIST changes: -BUPIVACAINE HCL 0.25 % INJ/PF (2.5 MG/1 ML) 30 ML VIAL ONE; -CEFAZOLIN 2 GM/D5W RTU 2 GM/50 ML RTUPB IV PRN; -FENTANYL CITRATE INJ/PF 100 MCG/2 ML AMPUL ONE; -KETAMINE HCL INJ 500 MG/10 ML VIAL ONE; -LIDOCAINE 1%/EPINEPHRINE INJ 20 ML VIAL ONE; -MIDAZOLAM 2 MG/2 ML INJ ONE; -PROPOFOL INJ 200 MG/20 ML VIAL IV ONE
[2017-03-31] MEDS ORDERED: BUPIVACAINE HCL 0.5 % INJ/PF 30 ML SDV ONE (10:36)
[2017-03-31] MEDS ORDERED: CEFAZOLIN 2 GM/D5W RTU 2 GM/50 ML RTUPB IV ONE (10:41)
[2017-03-31] MEDS ORDERED: MIDAZOLAM 2 MG/2 ML INJ ONE (12:34)
[2017-03-31] MEDS ORDERED: ONDANSETRON HCL INJ/PF 4 MG/2 ML SDV ONE (12:34)
[2017-03-31] MEDS ORDERED: EPHEDRINE SULFATE INJ 50 MG/1 ML AMPULE ONE (12:34)
[2017-03-31] MEDS ORDERED: PROPOFOL INJ 200 MG/20 ML VIAL IV ONE (12:35)
[2017-03-31] MEDS ORDERED: HYDROMORPHONE HCL INJ/PF 2 MG/ML AMPULE ONE (12:35)
[2017-03-31] MEDS ORDERED: MEPERIDINE HCL/PF INJ 25 MG/1 ML DISP.SYRIN IV PRN (13:18)
[2017-03-31] MEDS ORDERED: PROMETHAZINE HCL INJ 25 MG/1 ML VIAL IV PRN (13:18)
[2017-03-31] MEDS ORDERED: FENTANYL CITRATE INJ/PF 100 MCG/2 ML AMPUL IV PRN ×3 (13:18)
[2017-03-31] MEDS ORDERED: DIPHENHYDRAMINE HCL 50 MG/ML VIAL IV PRN (13:18)
--- NOTE | 2017-03-31 14:43 | Discharge Summary ---
Discharge Summary (SDC) - Discharge Final Diagnosis: Left middle finger FDS/FDP laceration Date of Surgery: 03/31/17 Discharge Date: 03/31/17 Condition: Good Treatment or Instructions: Schedule Follow Up w/ Dr. Ruben Alvarado @ [facility] to be seen in 10-14 days or as scheduled [place]: [place]: [place]: Ice and elevate Keep splint clean/dry/intact. If your fingers become numb please unwrap the [place] wrap but leave the splint in place, if the sensation does not return within 30 minutes please return to the emergency department. May begin finger range of motion attempting to make full fist. Please use ibuprofen (Motrin or Advil) 600-800 mg every 8 hours as needed for pain or fever. You may also use acetaminophen (Tylenol) 1000 mg every 4-6 hours as needed for pain or fever. Please be aware that many medications contain acetaminophen, do not exceed a total of 1000 mg of acetaminophen every 6 hours. If ibuprofen and acetaminophen are not sufficient for your pain you may take the Percocet/Kinsman. Please be aware that the Percocet/Kinsman does contain Tylenol. Stool softener of choice when on pain medication. Prescriptions: Ketorolac Tromethamine [Toradol 10 mg Tablet] 10 mg PO Q8HP PRN #10 tablet PRN Reason: Oxycodone HCl/Acetaminophen [Percocet 7.5-325 mg Tablet] 1 - 2 tab PO ASDIR PRN #45 tab PRN Reason: Referrals: RAFIA KRISHNAMURTHY MD [Primary Care Provider] - Respiratory Treatments at Home: Incentive Spirometer Discharge Activity: No Lifting Over 10 Pounds, No Lifting/Push/Pulling Report the Following to Your Physician Immediately: Fever over 101 Degrees, Unusual Bleeding, Redness, Swelling, Warmth, Increased Soreness
[2017-03-31] MEDS: FENTANYL CITRATE INJ/PF 100 MCG/2 ML AMPUL ONE ×2 (14:48→14:55)
--- NOTE | 2017-03-31 14:53 | Operative Report ---
Operative Report DATE OF SURGERY: 03/31/17 PREOPERATIVE DIAGNOSIS: Left middle finger flexor tendon laceration POSTOPERATIVE DIAGNOSIS: 1. Left middle finger FDP laceration. 2. Left middle finger FDS laceration OPERATION: 1. Left middle finger FDP repair zone II. 2. Left middle finger radial slip of FDS repair zone II SURGEON: LEONILA BURGESS ANESTHESIA: GA COMPLICATIONS: None ESTIMATED BLOOD LOSS: Minimal PROCEDURE: Indication for above procedure: 56-year-old male who sustained a laceration to his left middle finger. He was seen at the emergency room the area was cleansed he was told he sustained a tendon injury. Upon follow-up we discussed findings of his examination confirming flexor tendon laceration at that point decision was made to proceed with operative intervention. Risks and benefits were explained patient verbalized understanding consented for the procedure. Procedure In Detail: Patient was seen and evaluated in the preoperative holding area. The LEFT upper extremity was initialized and marked. Patient received 2 g Ancef IV for bacterial prophylaxis. Patient was taken back to the operative room where patient was transferred to the operative table. Patient was then placed under general anesthesia. Once he was adequately anesthetized and a nonsterile tourniquet was placed on his upper extremity. A sugical team review was performed ensuring all instrumentation was available, the surgical procedure was discussed with possible concerns reviewed. The upper extremity prepped with chlorhexidine and alcohol and draped in a sterile fashion. A timeout was done identifying correct patient, procedure and extremity everyone in attendance agree with this and verbalized no concerns.The extremity was exsanguinated the tourniquet was inflated to 250 mmHg. The LEFT MIDDLE finger laceration was opened and a Rob type incision was extended proximally and distally over the A1 and A4 pulleys. The neurovascular bundle radially and ulnarly were identified and found to be intact. At this point the FDS and FDP tendons were identified proximally and the A1 matt released. With the use of the tendon grasper the tendons were then pulled through the A2 matt from its proximal location in the palm. The tendons were then secured into position with a 22-gauge needle. The A4 matt was then vented distally to ensure adequate space for optimal gliding through the matt sheath. The ulnar slip of the FDS was excised. The radial slip of the FDS was then repaired with a modified Naranjo stitch utilizing 5-0 proline suture. I began the epitendinous suture along the dorsal aspect of the FDP tendon with a simple running suture. The FDP was then repaired utilizing 8-stranded repair with a cruciate suture technique utilizing 4-0 fiber loop suture. The epitendinous suture was then completed running along the volar surface and secured. There was optimal approximation of the tendon surfaces. There is no evidence catching or locking along the A2 or A4 matt. No evidence of bowstringing. Patient had full passive range of motion and evidence of full motion with tenodesis. Tourniquet was then deflated. Any peripheral bleeding was controlled with bipolar cautery into the wound was dry. Patient had normal capillary refill. A digital block was performed utilizing 0.5% Marcaine without epinephrine for postoperative pain control. The wound was then copious irrigated with normal saline. Skin incision was closed with interrupted 4-0 nylon suture. The wound was dressed with sterile Xeroform and 4 x 4's. Patient was placed in a dorsal blocking plaster splint that extended past the IP joints with the wrist at 30 of flexion, MCP joint at 60 of flexion and the IP joints at resting flexion. Sponge counts, instrument counts, needle counts counts were correct. Patient was then awoken from anesthesia. Transferred from the operating room table to the operating room stretcher. There was no intraoperative complications patient tolerated procedure well stable to PACU. Postoperative plan: Patient will follow in the office in 2 weeks for suture removal. Will be set up for occupational therapy 5-7 days postoperatively as per zone II flexor tendon protocol.
[2017-03-31] MEDS ORDERED: OXYCODONE-ACETAMINOPHEN 5-325 MG TABLET PO PRN (14:58)
[2017-03-31] MEDS ORDERED: HYDROMORPHONE HCL INJ/PF 2 MG/ML AMPULE IV PRN (14:58)
[2017-03-31] MEDS ORDERED: ONDANSETRON HCL INJ/PF 4 MG/2 ML SDV IV PRN (14:58)
[2017-03-31 17:44] VITALS: BP 141/76
== END 2017-03-31 16:50 | disposition home or self-care (01) ==
LOC: OROUT 10:24
PROVIDERS: ATTEND Orthopaedic Surgery
PROC: 0LM80ZZ Reattachment of Left Hand Tendon, Open Approach (ICD-10-PCS; principal; 2017-03-31 12:30)
DX: S66.123A Laceration of flexor muscle, fascia and tendon of left middle finger at wrist and hand level, initial encounter (principal); S64.493A Injury of digital nerve of left middle finger, initial encounter
CPT/HCPCS: 26356 ×2; 93005; 36415 ×2; 84132; 85025; 80053; 81001; 71046; 93010; J2250; J3490; J3010; J1170; J2405; J2704; J0690; 1810

== ENCOUNTER → 2017-07-01 | Outpatient (CLI) | payer MEDICAID ==
[~2017-07-01] MED LIST changes: -LACTATED RINGERS 1000 ML IV PRN; -LIDOCAINE 0.5% INJ-PF (5 MG/ML) 50 ML SDV SUBCUT PRN; +REGADENOSON INJ 0.4 MG/5 ML DISP.SYRIN IV ONE
--- NOTE | 2017-07-02 17:01 | DRAGON STRESS TEST REPORT ---
Intravenous Lexiscan Cardiolite stress test using single photon emmision computerized tomography. Date of procedure: 07/01/2017. Ordering Provider: Dr. Ian Ferro. Patient's status: Out Patient. Indication: Chest pain. Coronary risk factors: Age, hypertension, dyslipidemia , and tobacco abuse disorder. Resting EKG: Sinus Rhythm. Within Normal Limits. Stress EKG:[ No changes of ischemia. The patient had no chest pain or discomfort, and there were no arrhythmias seen. Reason for termination: Protocol. Conclusions: Normal EKG and hemodynamic response to IV Lexiscan. Nuclear data: At rest the patient was given 12.97 millicuries of technetium 99m sestamibi injected intravenously. As per protocol rest non gated SPECT images were obtained. Subsequently the patient was given intravenous Lexiscan at a dose of 0.4 mg in 5 mL intravenously, followed by flush with normal saline. Subsequently the stress dose of 35.9 millicuries of technetium 99m sestamibi was injected intravenously. As per protocol stress gated images were obtained. Nuclear interpretation: Review of images showed that all segments of the myocardium had normal perfusion at rest, and normal perfusion post stress with IV Lexiscan. All segments of the myocardium had normal motion, contraction, and thickening by gated study. T. I D. ratio was upper normal at 1.20. Visually The TID ratio was much lower than this.. Computer read rest, and stress left ventricular ejection fraction were 64 %, and 52 %, respectively. Visually both the stress and rest ejection fractions were normal, and greater than 55%. Conclusion: 1. There is no scintigraphic evidence of Lexiscan induced myocardial ischemia. 2. There is no scintigraphic evidence of myocardial infarction/scar. Recommendations: Aggressive risk factor modification, and treating the underlying co- morbidities. MTDD
== END ==
LOC: RAD 08:05
PROVIDERS: ATTEND Internal Medicine Cardiovascular Disease
DX: I25.5 Ischemic cardiomyopathy (principal); R06.02 Shortness of breath
CPT/HCPCS: 93017; 78452; A9500; J2785; Q9969

== ENCOUNTER 2017-07-21 10:49 | Day surgery (SDC) | payer MEDICAID, OTHER ==
[2017-05-14 10:44] LABS: ABSOLUTE EOSINOPHILS # (AUTO) 0.4 10^3/uL (0.0-0.6); ABSOLUTE LYMPHOCYTES (AUTO) 2.1 10^3/uL (0.5-4.7); ABSOLUTE MONOCYTES (AUTO) 0.6 10^3/uL (0.1-1.4); ABSOLUTE NEUT (AUTO) 4.1 10^3/uL (1.7-8.2); BASOPHILS % (AUTO) 0.7 % (0-2); EOSINOPHILS % (AUTO) 5.8 % (0-6); HEMOGLOBIN 14.5 g/dL (13.5-17.0); LYMPHOCYTES % (AUTO) 28.6 % (13-45); MEAN CORPUSCULAR HEMOGLOBIN 28.9 pg (27.0-33.4); MEAN CORPUSCULAR HGB CONC 33.7 g/dL (32.0-36.0); MEAN CORPUSCULAR VOLUME 86 fl (80-97); MONOCYTES % (AUTO) 8.9 % (3-13); PLATELET COUNT 283 10^3/uL (150-450); RED CELL DISTRIBUTION WIDTH 14.1 % (11.5-14.0); TOTAL CELLS COUNTED % (AUTO) 100 %; WHITE BLOOD COUNT 7.2 10^3/uL (4.0-10.5)
[2017-05-14 10:48] LABS: APPEARANCE,URINE CLEAR; BILIRUBIN,URINE NEGATIVE (NEGATIVE); COLOR,URINE COLORLESS; GLUCOSE, URINE NEGATIVE (NEGATIVE); KETONES,URINE NEGATIVE (NEGATIVE); URINE SPECIFIC GRAVITY 1.007
[2017-05-14 10:49] LABS: LEUKOCYTE ESTERASE,URINE NEGATIVE (NEGATIVE); NITRITE,URINE NEGATIVE (NEGATIVE); PROTEIN,URINE NEGATIVE (NEGATIVE); UROBILINOGEN,URINE NEGATIVE mg/dL (<2.0)
[2017-05-14 11:22] LABS: ANION GAP 13 (5-19); BLOOD UREA NITROGEN 20 mg/dL (7-20); CALCIUM 10.2 mg/dL (8.4-10.2); CARBON DIOXIDE 25 mmol/L (22-30); CHLORIDE 104 mmol/L (98-107); GLUCOSE 107 mg/dL (75-110); SODIUM 141.7 mmol/L (137-145)
--- NOTE | 2017-05-14 13:11 | EKG REPORT ---
SEVERITY:- NORMAL ECG - SINUS RHYTHM : Confirmed by: Broderick Hammond MD 14-May-2017 13:10:45
--- NOTE | 2017-05-14 13:24 | RADIOLOGY REPORT (SQ) ---
EXAM DESCRIPTION: CHEST PA/LATERAL COMPLETED DATE/TIME: 05/14/2017 11:17 am REASON FOR STUDY: PRE-OP COMPARISON: Chest films 05/26/2016, 09/12/2016, 01/05/2017, 03/30/2017 EXAM PARAMETERS: NUMBER OF VIEWS: two views TECHNIQUE: Digital Frontal and Lateral radiographic views of the chest acquired. RADIATION DOSE: NA LIMITATIONS: none FINDINGS: LUNGS AND PLEURA: No dense consolidation. Chronic mild increased interstitial markings at the bases. No pleural effusion or pneumothorax. MEDIASTINUM AND HILAR STRUCTURES: No masses or contour abnormalities. HEART AND VASCULAR STRUCTURES: Heart normal size. No evidence for failure. BONES: No acute findings. HARDWARE: None in the chest. OTHER: No other significant finding. IMPRESSION: No acute findings TECHNICAL DOCUMENTATION: JOB ID: [id number] [employer]- All Rights Reserved Reading location - IP/workstation name: [email or web address]
[~2017-07-21 10:49] MED LIST changes: +BUPIVACAINE HCL 0.5 % INJ/PF 30 ML SDV ONE; +CEFAZOLIN SODIUM 2 GM in NORMAL SALINE 100 ML IV PRN; +LACTATED RINGERS 1000 ML IV PRN; -REGADENOSON INJ 0.4 MG/5 ML DISP.SYRIN IV ONE
[2017-07-21] MEDS ORDERED: LIDOCAINE 2% INJ-PF (20 MG/ML) 10 ML AMPUL ONE (11:48)
[2017-07-21] MEDS ORDERED: MIDAZOLAM 2 MG/2 ML INJ ONE (11:49)
[2017-07-21] MEDS ORDERED: DEXAMETHASONE SOD PHOSPHATE INJ 4 MG/1 ML VIAL ONE (11:49)
[2017-07-21] MEDS ORDERED: PROPOFOL INJ 200 MG/20 ML VIAL IV ONE (11:49)
[2017-07-21] MEDS ORDERED: FENTANYL CITRATE INJ/PF 100 MCG/2 ML AMPUL ONE (11:49)
[2017-07-21] MEDS ORDERED: ONDANSETRON HCL INJ/PF 4 MG/2 ML SDV ONE (11:49)
[2017-07-21] MEDS ORDERED: ACETAMINOPHEN 1,000 MG/100 ML RTUPB IV ONE (11:50)
[2017-07-21 12:49] LABS: HEMATOCRIT 39.3 % (37.9-51.0); HEMOGLOBIN 13.2 g/dL (13.5-17.0); MEAN CORPUSCULAR HEMOGLOBIN 29.3 pg (27.0-33.4); MEAN CORPUSCULAR HGB CONC 33.6 g/dL (32.0-36.0); MEAN CORPUSCULAR VOLUME 87 fl (80-97); PLATELET COUNT 264 10^3/uL (150-450); RED BLOOD COUNT 4.51 10^6/uL (4.35-5.55); RED CELL DISTRIBUTION WIDTH 14.3 % (11.5-14.0)
[2017-07-21 13:00] LABS: ANION GAP 6 (5-19); BLOOD UREA NITROGEN 19 mg/dL (7-20); CALCIUM 9.5 mg/dL (8.4-10.2); CARBON DIOXIDE 27 mmol/L (22-30); CHLORIDE 109 mmol/L (98-107); GLUCOSE 103 mg/dL (75-110); SODIUM 141.8 mmol/L (137-145)
[2017-07-21] MEDS ORDERED: CARVEDILOL 6.25 MG TABLET PO ONE (13:30)
[2017-07-21] MEDS ORDERED: FENTANYL CITRATE INJ/PF 100 MCG/2 ML AMPUL IV PRN ×9 (13:58→18:08)
[2017-07-21] MEDS ORDERED: PROMETHAZINE HCL INJ 25 MG/1 ML VIAL IV PRN ×6 (13:58→18:08)
[2017-07-21] MEDS ORDERED: ONDANSETRON HCL INJ/PF 4 MG/2 ML SDV IV PRN ×4 (13:58→18:46)
[2017-07-21] MEDS ORDERED: DIPHENHYDRAMINE HCL 50 MG/ML VIAL IV PRN ×3 (13:58→18:08)
[2017-07-21] MEDS ORDERED: MORPHINE SULFATE 10 MG/ML INJ IV PRN ×4 (13:58→18:46)
[2017-07-21] MEDS ORDERED: MEPERIDINE HCL/PF INJ 25 MG/1 ML DISP.SYRIN IV PRN ×3 (13:58→18:08)
[2017-07-21] MEDS ORDERED: OXYCODONE-ACETAMINOPHEN 5-325 MG TABLET PO PRN (18:46)
--- NOTE | 2017-07-21 18:47 | Discharge Summary ---
Discharge Summary (SDC) - Discharge Final Diagnosis: Left Middle finger flexor tendon rupture Date of Surgery: 07/21/17 Discharge Date: 07/21/17 Condition: Good Treatment or Instructions: Schedule Follow Up w/ Dr. Ruben Alvarado @ [facility] to be seen in 10-14 days or as scheduled [place]: [place]: [place]: May remove dressing on postop day #3, keep incision covered and dry. Ice and elevate Begin aggressive passive finger range of motion immediately. Stool softener of choice when on pain medication. Prescriptions: Oxycodone HCl/Acetaminophen [Percocet 5-325 mg Tablet] 1 - 2 tab PO ASDIR PRN # 35 tablet PRN Reason: Referrals: RAFIA KRISHNAMURTHY MD [Primary Care Provider] - Respiratory Treatments at Home: Deep Breathing/Coughing Discharge Activity: No Lifting Over 10 Pounds, No Lifting/Push/Pulling Report the Following to Your Physician Immediately: Fever over 101 Degrees, Unusual Bleeding, Redness, Swelling, Warmth, Increased Soreness
--- NOTE | 2017-07-21 18:57 | Operative Report ---
Operative Report PREOPERATIVE DIAGNOSIS: Left Middle finger flexor tendon rupture POSTOPERATIVE DIAGNOSIS: Same OPERATION: Flexor tenolysis w/ PIP contracture release left middle finger w/ placement of hunters vince SURGEON: LEONILA BURGESS ANESTHESIA: GA COMPLICATIONS: None ESTIMATED BLOOD LOSS: Minimal PROCEDURE: Indication for above procedure: 57-year-old male who sustained a flexor tendon laceration. Patient underwent operative intervention unfortunately patient developed inability to flex his finger during therapy thus concern for possible tendon rupture was ascertained. At that point we discussed treatment options including operative versus nonoperative intervention. We also discussed the possibility of rerupture and postoperative prognosis and rehabilitation will be required including repeat operative intervention. After discussing these risks the joint decision was made to proceed with operative intervention. Procedure In Detail: Patient was seen and evaluated in the preoperative holding area. The Left upper extremity was initialized and marked. Patient received 2g of Ancef IV for bacterial prophylaxis. Patient was taken back to the operative room where transferred to the operative table and placed under general anesthesia. Once they were adequately anesthetized a nonsterile tourniquet was placed on the upper extremity. A surgical team debriefing was performed ensuring all instrumentation was available, the surgical procedure was discussed with possible concerns reviewed. The upper extremity was prepped with chlorhexidine and alcohol and draped in a sterile fashion. A timeout was done identifying correct patient, procedure and extremity everyone in attendance agree with this and verbalized no concerns. The extremity was exsanguinated the tourniquet was inflated to 250 mmHg. Patient's previous skin incision was utilized, extended proximally and distally. Blunt dissection was performed the neurovascular bundles were identified radially and ulnarly remained intact. There is significant scar tissue throughout the digit at the previous surgical site. The distal stump and proximal stump for both scarred into the surrounding soft tissues. With a Ramona blade I was able to elevate the scarred and distal tendon with a tenolysis my scar was freed dorsally and volarly. A portion of the distal end was then resected to allow for attachment of the ulnar vince. Proximally a tenolysis knife was utilized to free discarded FDS and FDP remnants which was at the level of the A1 matt. The A1 matt was opened along its proximal aspect and the FDS and FDP were retracted proximal to the A1 matt. A dilator was placed through the matt system at A2 and A4 which remained competent. The PIP joint was then exposed and the accessory collateral ligaments were freed along with the volar plate to correct patient's extension contracture. Once release was finished patient was able to achieve full passive flexion of the digit. Along the proximal aspect the FDP was released from any scarring specifically the insertion of the lumbricals. I then secured the FDS to the FDP tendon with [id number] 3-0 Prolene suture. Measuring the tunnel I determine a size 4 mm implant would fit adequately. Thus the Suresh vince implant was opened but left in the package on the back table. Maintaining "no touch technique" the Suresh vince was secured to the FDP stump distally with modified Naranjo suture utilizing 3-0 Prolene. I then placed an additional stitch proximally and this was fed through the matt mechanism to the level just proximal to the distal palmar crease. Any excess silicone Suresh vince was then excised at the level of the palm. I then pulled the Suresh vince proximally to achieve range of motion of the digit there was no evidence of bowstringing at the level of the A3 matt thus I felt matt reconstruction was not required. The wound was copiously irrigated with normal saline. Tourniquet was deflated and compression was held for 2 minutes any remaining peripheral bleeding was controlled with bipolar cautery. Patient had good peripheral perfusion and normal skin turgor. Skin incision was then closed with interrupted 4-0 nylon suture. Wound was dressed with Xeroform 4 x 4's and patient was placed in a dorsal blocking splint maintaining wrist flexion of 20 MP joint flexion of 60 and full IP joint extension. Sponge counts, instrument counts, needle counts counts were correct. Patient was then awoken from anesthesia. Transferred from the operating room table to the operating room stretcher. There was no intraoperative complications patient tolerated procedure well stable to PACU. Postoperative plan: Patient will begin occupational therapy 3 days postoperatively and begin passive range of motion immediately. Plan will be returned to the operating room 6-12 weeks or until soft tissues are adequate for stage II of flexor tendon reconstruction
[2017-07-21] MEDS ORDERED: SUCCINYLCHOLINE CHLORIDE INJ 200 MG/10 ML VIAL ONE (20:42)
[2017-07-21 21:22] VITALS: BP 144/85
== END 2017-07-21 21:34 | disposition home or self-care (01) ==
LOC: OROUT 10:49 → 2N 19:36 → OROUT 21:34
PROVIDERS: ATTEND Orthopaedic Surgery
DX: S66.101A Unspecified injury of flexor muscle, fascia and tendon of left index finger at wrist and hand level, initial encounter (principal); X58.XXXA Exposure to other specified factors, initial encounter; Z01.810 Encounter for preprocedural cardiovascular examination; J44.9 Chronic obstructive pulmonary disease, unspecified; F17.210 Nicotine dependence, cigarettes, uncomplicated; I10 Essential (primary) hypertension; Z79.899 Other long term (current) drug therapy; Z88.6 Allergy status to analgesic agent
CPT/HCPCS: 93005; 36415 ×2; 85025; 85027; 80048 ×2; 81001; 71046; 93010; 26035; 26440; J2250; J3490 ×3; J0690; J1100; J3010; J2270; J0330; J2405; J2704; J0131; 1830

== ENCOUNTER 2017-12-22 05:42 | Day surgery (SDC) | payer MEDICAID ==
[2017-12-15 09:39] LABS: HEMATOCRIT 41.4 % (37.9-51.0); HEMOGLOBIN 13.9 g/dL (13.5-17.0); MEAN CORPUSCULAR HEMOGLOBIN 29.4 pg (27.0-33.4); MEAN CORPUSCULAR HGB CONC 33.5 g/dL (32.0-36.0); MEAN CORPUSCULAR VOLUME 88 fl (80-97); PLATELET COUNT 288 10^3/uL (150-450); RED BLOOD COUNT 4.73 10^6/uL (4.35-5.55); RED CELL DISTRIBUTION WIDTH 14.6 % (11.5-14.0); WHITE BLOOD COUNT 5.4 10^3/uL (4.0-10.5)
[2017-12-15 09:54] LABS: APPEARANCE,URINE SLIGHTLY-CLOUDY; BILIRUBIN,URINE NEGATIVE (NEGATIVE); COLOR,URINE YELLOW; GLUCOSE, URINE NEGATIVE (NEGATIVE); KETONES,URINE NEGATIVE (NEGATIVE); LEUKOCYTE ESTERASE,URINE SMALL (NEGATIVE); NITRITE,URINE NEGATIVE (NEGATIVE); PROTEIN,URINE NEGATIVE (NEGATIVE); URINE SPECIFIC GRAVITY 1.021; UROBILINOGEN,URINE NEGATIVE mg/dL (<2.0)
[2017-12-15 09:59] LABS: ANION GAP 13 (5-19); BLOOD UREA NITROGEN 12 mg/dL (7-20); CALCIUM 9.8 mg/dL (8.4-10.2); CARBON DIOXIDE 26 mmol/L (22-30); CHLORIDE 107 mmol/L (98-107); GLUCOSE 111 mg/dL (75-110); POTASSIUM 4.3 mmol/L (3.6-5.0); SODIUM 146.4 mmol/L (137-145)
--- NOTE | 2017-12-15 10:35 | RADIOLOGY REPORT (SQ) ---
EXAM DESCRIPTION: CHEST PA/LATERAL COMPLETED DATE/TIME: 12/15/2017 9:26 am REASON FOR STUDY: PRE-OP COMPARISON: 06/22/2016 EXAM PARAMETERS: NUMBER OF VIEWS: two views TECHNIQUE: Digital Frontal and Lateral radiographic views of the chest acquired. RADIATION DOSE: NA LIMITATIONS: none FINDINGS: LUNGS AND PLEURA: Perihilar markings are prominent. This is stable from prior study. The re is scarring along the right minor fissure. No consolidation or effusions. MEDIASTINUM AND HILAR STRUCTURES: No masses or contour abnormalities. HEART AND VASCULAR STRUCTURES: Heart normal size. No evidence for failure. BONES: No acute findings. HARDWARE: None in the chest. OTHER: No other significant finding. IMPRESSION: Chronic perihilar changes. No acute findings in the chest. TECHNICAL DOCUMENTATION: JOB ID: [id number] [employer]- All Rights Reserved Reading location - IP/workstation name: [email or web address]
--- NOTE | 2017-12-15 10:40 | EKG REPORT ---
SEVERITY:- NORMAL ECG - SINUS RHYTHM : Confirmed by: Haydee Ojeda MD 15-Dec-2017 10:39:49
[~2017-12-22 05:42] MED LIST changes: -BUPIVACAINE HCL 0.5 % INJ/PF 30 ML SDV ONE; +CEFAZOLIN 2 GM/D5W RTU 2 GM/50 ML RTUPB IV PRN; -CEFAZOLIN SODIUM 2 GM in NORMAL SALINE 100 ML IV PRN; +LIDOCAINE 0.5% INJ-PF (5 MG/ML) 50 ML SDV SUBCUT PRN
[2017-12-22] MEDS ORDERED: CEFAZOLIN 2 GM/D5W RTU 2 GM/50 ML RTUPB IV ONE (05:49)
[2017-12-22] MEDS ORDERED: ALBUTEROL SULFATE 0.083% NEB 2.5 MG/3 ML AMPUL NEB ONE ×2 (06:19→06:45)
[2017-12-22] MEDS ORDERED: CARVEDILOL 6.25 MG TABLET ONE (06:23)
[2017-12-22] MEDS ORDERED: HYDROCHLOROTHIAZIDE 25 MG TABLET ONE (06:24)
[2017-12-22] MEDS ORDERED: AMLODIPINE BESYLATE 2.5 MG TABLET ONE (06:25)
[2017-12-22] MEDS ORDERED: LISINOPRIL 10 MG TABLET PO ONE (06:45)
[2017-12-22] MEDS ORDERED: HYDROCHLOROTHIAZIDE 25 MG TABLET PO ONE (06:45)
[2017-12-22] MEDS ORDERED: AMLODIPINE BESYLATE 5 MG TABLET PO ONE (06:45)
[2017-12-22] MEDS ORDERED: BUPIVACAINE HCL 0.5 % INJ/PF 30 ML SDV ONE (06:59)
[2017-12-22] MEDS ORDERED: LIDOCAINE 1% INJ-PF (10 MG/ML) 30 ML SDV ONE (06:59)
[2017-12-22] MEDS ORDERED: CARVEDILOL 12.5 MG TABLET PO ONE (07:00)
[2017-12-22] MEDS ORDERED: LIDOCAINE 2% INJ-PF (20 MG/ML) 10 ML AMPUL ONE (07:04)
[2017-12-22] MEDS ORDERED: MIDAZOLAM 2 MG/2 ML INJ ONE (07:04)
[2017-12-22] MEDS ORDERED: FENTANYL CITRATE INJ/PF 100 MCG/2 ML AMPUL ONE ×2 (07:04→09:51)
[2017-12-22] MEDS ORDERED: ONDANSETRON HCL INJ/PF 4 MG/2 ML SDV ONE (07:05)
[2017-12-22] MEDS ORDERED: PROPOFOL INJ 200 MG/20 ML VIAL IV ONE (07:05)
[2017-12-22] MEDS ORDERED: PROMETHAZINE HCL INJ 25 MG/1 ML VIAL IV PRN ×2 (08:08)
[2017-12-22] MEDS ORDERED: DIPHENHYDRAMINE HCL 50 MG/ML VIAL IV PRN (08:08)
[2017-12-22] MEDS ORDERED: MEPERIDINE HCL/PF INJ 25 MG/1 ML DISP.SYRIN IV PRN (08:08)
[2017-12-22] MEDS ORDERED: FENTANYL CITRATE INJ/PF 100 MCG/2 ML AMPUL IV PRN ×3 (08:08)
[2017-12-22] MEDS ORDERED: EPHEDRINE SULFATE INJ 50 MG/1 ML AMPULE ONE (09:02)
[2017-12-22] MEDS ORDERED: OXYCODONE-ACETAMINOPHEN 5-325 MG TABLET PO PRN (09:44)
[2017-12-22] MEDS ORDERED: ONDANSETRON HCL INJ/PF 4 MG/2 ML SDV IV PRN (09:44)
--- NOTE | 2017-12-22 09:45 | Discharge Summary ---
Discharge Summary (SDC) - Discharge Final Diagnosis: PIP joint arthrodesis left middle finger Date of Surgery: 12/22/17 Discharge Date: 12/22/17 Condition: Good Treatment or Instructions: Schedule Follow Up w/ Dr. Ruben Alvarado @ [facility] to be seen in 10-14 days or as scheduled [place]: [place]: [place]: Keep splint intact until Occupational Therapy follow-up Ice and elevate Stool softener of choice when on pain medication. Prescriptions: Oxycodone HCl/Acetaminophen [Percocet 5-325 mg Tablet] 1 tab PO Q6 PRN #25 tab PRN Reason: Referrals: RAFIA KRISHNAMURTHY MD [Primary Care Provider] - Discharge Diet: As Tolerated Respiratory Treatments at Home: Deep Breathing/Coughing Discharge Activity: No Lifting Over 10 Pounds, No Lifting/Push/Pulling Report the Following to Your Physician Immediately: Fever over 101 Degrees, Unusual Bleeding, Redness, Swelling, Warmth, Increased Soreness
--- NOTE | 2017-12-22 09:46 | Operative Report ---
Operative Report DATE OF SURGERY: 12/22/17 PREOPERATIVE DIAGNOSIS: Left middle finger zone II flexor tendon laceration with failed reconstruction POSTOPERATIVE DIAGNOSIS: Same OPERATION: 1. PIP joint arthrodesis left middle finger. 2. Removal of Suresh vince SURGEON: LEONILA BURGESS ANESTHESIA: GA COMPLICATIONS: None ESTIMATED BLOOD LOSS: Minimal PROCEDURE: Indication for above procedure: 57-year-old male who sustained a laceration to his left middle finger. He underwent flexor tendon repair but unfortunately developed a rupture of the flexor tendon. He went back for second procedure which included tenolysis with placement of Suresh vince. Unfortunately with therapy he never was able to achieve adequate passive range of motion in order to proceed with flexor tendon reconstruction despite exhausting all efforts. At that point we discussed treatment options given the lack of motion and difficulty with function because of the digits alignment we discussed possible arthrodesis. After discussing risks and benefits patient elected to proceed with PIP joint arthrodesis. Procedure In Detail: Patient was seen and evaluated in the preoperative holding area. The LEFT upper extremity was initialized and marked. Patient received 2g of Ancef IV for bacterial prophylaxis. Patient was taken back to the operative room where transferred to the operative table and placed under anesthesia. Once they were adequately anesthetized a nonsterile tourniquet was placed on the upper extremity. A surgical team debriefing was performed ensuring all instrumentation was available, the surgical procedure was discussed with possible concerns reviewed. Digital block was performed with 20 cc of 1% lidocaine without epinephrine the upper extremity was prepped with chlorhexidine and alcohol and draped in a sterile fashion. A timeout was done identifying correct patient, procedure and extremity everyone in attendance agree with this and verbalized no concerns. The extremity was exsanguinated the tourniquet was inflated to 200 mmHg. Chevron skin incision was made along the volar aspect of the DIP joint. The Suresh vince was isolated and removed. This wound was copiously irrigated with normal saline and closed with interrupted 4-0 nylon suture. Curvilinear skin incision was made dorsally on the PIP joint and a small peripheral veins were coagulated bipolar cautery. The extensor mechanism was isolated and split midline. The radial and ulnar collateral ligaments were identified and released in order to achieve adequate passive range of motion. The articular surface of the PIP joint were resected with a oscillating saw under irrigation. They were contoured to achieve 45 degrees of flexion which would be the optimal position for patient's function. A 0.045 K wire was then directed retrograde through the proximal phalanx and a second 0.0 4 5 K wire placed parallel to the previous K wire. The PIP joint was then reduced at the 45 degrees of flexion and the K wires advanced in antegrade fashion into the middle phalanx proximal to the articular surface. The PIP joints were then compressed and C-arm fluoroscopy was obtained confirming adequate alignment. The transverse drill was placed along the middle phalanx 5 mm distal to the articular surface and a 24-gauge wire passed in a [id number] type configuration around the K wires and tightened. The K wires were then reversed cut and bent and advanced distally attention was focused to ensure there is no evidence of K wire intrusion within the DIP joint. C-arm fluoroscopy was obtained confirming adequate alignment of the PIP joint with adequate compression. Any remaining gaps in the arthrodesis was filled with previous bone from the osteotomy. Wound was copiously irrigated with normal saline. Tourniquet was deflated. Any peripheral bleeding was controlled with bipolar cautery until the wound was dry. Extensor mechanism was closed with interrupted 3-0 Vicryl suture. Skin was closed with interrupted 4-0 nylon suture. Wound was dressed Xeroform 4 x 4's and patient was placed in a splint. Sponge counts, instrument counts, needle counts counts were correct. Patient was then awoken from anesthesia. Transferred from the operating room table to the operating room stretcher. There was no intraoperative complications patient tolerated procedure well stable to PACU. Postoperative plan: Patient will be set up for occupational therapy 5-7 days postoperatively and fitted for a PIP joint splint until radiographic union. Will obtain x-rays at follow-up.
[2017-12-22] MEDS ORDERED: ACETAMINOPHEN 1,000 MG/100 ML RTUPB IV ONE (09:55)
--- NOTE | 2017-12-22 10:25 | RADIOLOGY REPORT (SQ) ---
EXAM DESCRIPTION: NO CHG FLUORO; FINGER LEFT COMPLETED DATE/TIME: 12/22/2017 10:06 am REASON FOR STUDY: LT MID FINGER, PROXIMAL S66.103D UNSP INJ FLXR MUSC/FASC/TEND L MID FNGR AT WRS/H ND COMPARISON: None. FLUOROSCOPY TIME: 32 seconds 3 images saved to PACS. TECHNIQUE: Intra-operative images acquired during surgical procedure to evaluate progress. NUMBER OF IMAGES: 3 LIMITATIONS: None. FINDINGS: Selected images from orthopedic pin and cerclage wire fusion proximal interphalangeal join t. IMPRESSION: IMAGE(S) OBTAINED DURING PROCEDURE. COMMENT: Quality ID 145: Final reports for procedures using fluoroscopy that document radiation exp osure indices, or exposure time and number of fluorographic images (if radiation exposure indices are not available) Please consult full operative report of the attending physician for description of the procedure. TECHNICAL DOCUMENTATION: JOB ID: [id number] [employer]- All Rights Reserved Reading location - IP/workstation name: [email or web address]
--- NOTE | 2017-12-22 10:25 | RADIOLOGY REPORT (SQ) ---
EXAM DESCRIPTION: NO CHG FLUORO; FINGER LEFT COMPLETED DATE/TIME: 12/22/2017 10:06 am REASON FOR STUDY: LT MID FINGER, PROXIMAL S66.103D UNSP INJ FLXR MUSC/FASC/TEND L MID FNGR AT WRS/H ND COMPARISON: None. FLUOROSCOPY TIME: 32 seconds 3 images saved to PACS. TECHNIQUE: Intra-operative images acquired during surgical procedure to evaluate progress. NUMBER OF IMAGES: 3 LIMITATIONS: None. FINDINGS: Selected images from orthopedic pin and cerclage wire fusion proximal interphalangeal join t. IMPRESSION: IMAGE(S) OBTAINED DURING PROCEDURE. COMMENT: Quality ID 145: Final reports for procedures using fluoroscopy that document radiation exp osure indices, or exposure time and number of fluorographic images (if radiation exposure indices are not available) Please consult full operative report of the attending physician for description of the procedure. TECHNICAL DOCUMENTATION: JOB ID: [id number] [employer]- All Rights Reserved Reading location - IP/workstation name: [email or web address]
[2017-12-22] MEDS ORDERED: OXYCODONE-ACETAMINOPHEN 5-325 MG TABLET ONE (10:34)
[2017-12-22 12:53] VITALS: BP 117/70
== END 2017-12-22 12:00 | disposition home or self-care (01) ==
LOC: OROUT 05:42
PROVIDERS: ATTEND Orthopaedic Surgery
DX: S66.10 Unspecified injury of flexor muscle, fascia and tendon of other and unspecified finger at wrist and hand level (principal); S69.92XD Unspecified injury of left wrist, hand and finger(s), subsequent encounter; X58.XXXD Exposure to other specified factors, subsequent encounter; J44.9 Chronic obstructive pulmonary disease, unspecified; G89.29 Other chronic pain; M19.90 Unspecified osteoarthritis, unspecified site; I10 Essential (primary) hypertension; E78.5 Hyperlipidemia, unspecified; F17.210 Nicotine dependence, cigarettes, uncomplicated; K21.9 Gastro-esophageal reflux disease without esophagitis; Z79.51 Long term (current) use of inhaled steroids; Z79.899 Other long term (current) drug therapy; Z88.6 Allergy status to analgesic agent; Z87.892 Personal history of anaphylaxis
CPT/HCPCS: 93005; 36415 ×2; 84132; 85027; 80048; 81001; 71046; 73140; 93010; 26860; 20680; C1713; J2250; J3490 ×7; J3010; J2405; J2704; J0690; J0131; 01830

== ENCOUNTER 2018-05-23 18:05 | Emergency (ER) | payer MEDICAID ==
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
[2018-05-23 20:10] VITALS: BP 124/77
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
[2018-05-23] MEDS ORDERED: OXYCODONE-ACETAMINOPHEN 5-325 MG TABLET PO ONE (20:56)
--- NOTE | 2018-05-23 21:13 | RADIOLOGY REPORT (SQ) ---
EXAM DESCRIPTION: [facility]: XR HAND 3 OR MORE VIEWS Views: 5 CLINICAL HISTORY: 58 years Male, 2,3,4 finger very painful COMPARISON: 03/24/2017 and 12/22/2017 FINDINGS: 3rd finger: There has been previous fusion of the PIP joint, with fixation wires traversing the joint. These are similar to the intraoperative spot views obtained on 12/22/2017. There is a fracture through the lateral proximal corner of the 3rd proximal phalanx, with minimal displacement. The fracture plane extends to the articular surface. There is some remodeling of the articular surface, best seen on lateral view. This is new since the 03/24/2017 radiographs. Chronic remodeling of the 5th metacarpal consistent with old fracture is similar to the 2018 exam. The 2nd and 4th distal phalanges are absent, as on prior exam. Mild degenerative changes of the 1st MCP and IP joint are also similar. IMPRESSION: 1. Minimally displaced fracture through the proximal head of the 3rd proximal phalanx. 2. Other chronic findings as described.
== END 2018-05-23 21:50 | disposition home or self-care (01) ==
LOC: ER 18:05
DX: S62.613A Displaced fracture of proximal phalanx of left middle finger, initial encounter for closed fracture (principal); R42 Dizziness and giddiness; F17.210 Nicotine dependence, cigarettes, uncomplicated; W19.XXXA Unspecified fall, initial encounter; Y92.009 Unspecified place in unspecified non-institutional (private) residence as the place of occurrence of the external cause; E78.00 Pure hypercholesterolemia, unspecified; I10 Essential (primary) hypertension; Z88.6 Allergy status to analgesic agent; I25.2 Old myocardial infarction
CPT/HCPCS: 82962; 99283; 99406

== ENCOUNTER → 2018-08-06 | Outpatient (CLI) | payer MEDICAID ==
--- NOTE | 2018-08-06 12:04 | RADIOLOGY REPORT (SQ) ---
EXAM DESCRIPTION: CAROTID DOPPLER COMPLETED DATE/TIME: 08/06/2018 11:21 am REASON FOR STUDY: CAROTID STENOSIS I65.23 OCCLUSION AND STENOSIS OF BILATERAL CAROTID ARTERIES COMPARISON: None. TECHNIQUE: Grayscale ultrasound, Doppler velocity and spectra, and color Doppler images acquired of the extra-cranial carotid and vertebral arteries. Images stored on PACS. LIMITATIONS: None. FINDINGS: RIGHT CAROTID CCA Velocities: Within normal limits. ICA Velocities Peak systolic 107 cm/s. End diastolic 39 cm/s. Proximal ICA/CCA peak systolic ratio 1.27. There is some intimal thickening and a small amount of soft plaque. LEFT CAROTID CCA Velocities: Within normal limits. ICA Velocities Peak systolic 91 cm/s. End diastolic 27 cm/s. Proximal ICA/CCA peak systolic ratio 0.98. Spectra normal. No significant plaque. VERTEBRAL ARTERIES: Antegrade flow. Normal waveforms. SUBCLAVIAN ARTERIES: No finding. OTHER: No other significant finding. IMPRESSION: NO HEMODYNAMICALLY SIGNIFICANT STENOSIS. COMMENT: Quality ID #[id number]: Velocity criteria are extrapolated from the diameter data as defined by t he Society of Radiologists in Ultrasound Consensus Conference. Radiology 2003: 229; 340-346. TECHNICAL DOCUMENTATION: JOB ID: [id number] [employer]- All Rights Reserved Reading location - IP/workstation name: [email or web address]
== END ==
LOC: SP 09:44
PROVIDERS: ATTEND Internal Medicine
DX: I65.23 Occlusion and stenosis of bilateral carotid arteries (principal)
CPT/HCPCS: 93880

== ENCOUNTER 2018-10-30 15:31 | Inpatient (IN) | payer MEDICAID ==
[2018-10-30] MEDS ORDERED: LORAZEPAM INJ 2 MG/1 ML VIAL ONE (16:09)
[2018-10-30 16:26] LABS: ABSOLUTE BASOPHILS # (AUTO) 0.1 10^3/uL (0.0-0.2); ABSOLUTE EOSINOPHILS # (AUTO) 0.4 10^3/uL (0.0-0.6); ABSOLUTE LYMPHOCYTES (AUTO) 2.9 10^3/uL (0.5-4.7); ABSOLUTE MONOCYTES (AUTO) 0.5 10^3/uL (0.1-1.4); ABSOLUTE NEUT (AUTO) 3.3 10^3/uL (1.7-8.2); BASOPHILS % (AUTO) 1.3 % (0-2); EOSINOPHILS % (AUTO) 5.1 % (0-6); HEMOGLOBIN 13.6 g/dL (13.5-17.0); LYMPHOCYTES % (AUTO) 40.7 % (13-45); MEAN CORPUSCULAR HEMOGLOBIN 28.7 pg (27.0-33.4); MEAN CORPUSCULAR HGB CONC 33.1 g/dL (32.0-36.0); MEAN CORPUSCULAR VOLUME 87 fl (80-97); MONOCYTES % (AUTO) 7.6 % (3-13); PLATELET COUNT 279 10^3/uL (150-450); RED BLOOD COUNT 4.72 10^6/uL (4.35-5.55); SEGMENTED NEUTROPHILS % (AUTO) 45.3 % (42-78); TOTAL CELLS COUNTED % (AUTO) 100 %; WHITE BLOOD COUNT 7.2 10^3/uL (4.0-10.5)
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
[2018-10-30] MEDS ORDERED: LORAZEPAM INJ 2 MG/1 ML VIAL IV ONE (16:33)
[2018-10-30 16:36] LABS: ALBUMIN 4.5 g/dL (3.5-5.0); ALCOHOL 270 mg/dL (NONE DETECTED); ALKALINE PHOSPHATASE 61 U/L (38-126); ANION GAP 14 (5-19); ASPARTATE AMINO TRANSFERASE 40 U/L (17-59); BILIRUBIN,DIRECT 0.1 mg/dL (0.0-0.4); BILIRUBIN,TOTAL 1.1 mg/dL (0.2-1.3); BLOOD UREA NITROGEN 15 mg/dL (7-20); CALCIUM 9.8 mg/dL (8.4-10.2); CARBON DIOXIDE 23 mmol/L (22-30); CHLORIDE 109 mmol/L (98-107); GLUCOSE 97 mg/dL (75-110); POTASSIUM 3.9 mmol/L (3.6-5.0); TOTAL PROTEIN 7.3 g/dL (6.3-8.2)
--- NOTE | 2018-10-30 17:15 | RADIOLOGY REPORT (SQ) ---
EXAM DESCRIPTION: CT HEAD WITHOUT COMPLETED DATE/TIME: 10/30/2018 4:49 pm REASON FOR STUDY: AMS, suspect seizure COMPARISON: None. TECHNIQUE: Axial images acquired through the brain without intravenous contrast. Images reviewed wi th bone, brain and subdural windows. Images stored on PACS. All CT scanners at this facility use dose modulation, iterative reconstruction, and/or weight based d osing when appropriate to reduce radiation dose to as low as reasonably achievable (ALARA). [facility]: Dose Right [facility]: CareDose [facility]: Dose Right [facility]: Teradose 4D [facility]: Smart Technologies RADIATION DOSE: CT Rad equipment meets quality standard of care and radiation dose reduction techniq ues were employed. CTDIvol: 53.2 mGy. DLP: 1017 mGy-cm. mGy. LIMITATIONS: None. FINDINGS: VENTRICLES: Normal. CEREBRUM: No hemorrhage. No midline shift. Scattered Areas of low density in the white matter most likely due to chronic micro-vascular ischemic change. No evidence for acute large vessel infarction . CEREBELLUM: No masses. No hemorrhage. No alteration of density. No evidence for acute infarction. EXTRAAXIAL SPACES: Mild age-related involutional change. No fluid collections. No masses. ORBITS AND GLOBE: No intra- or extraconal masses. Normal contour of globe without masses. CALVARIUM: No fracture. PARANASAL SINUSES: No fluid or mucosal thickening. SOFT TISSUES: No mass or hematoma. OTHER: No other significant finding. IMPRESSION: No hemorrhage. No midline shift. Scattered Areas of low density in the white matter mo st likely due to chronic micro-vascular ischemic change. No evidence for acute large vessel infarcti on. EVIDENCE OF ACUTE STROKE: NO. TECHNICAL DOCUMENTATION: JOB ID: [id number] Quality ID # [id number]: Final reports with documentation of one or more dose reduction techniques (e.g., Au tomated exposure control, adjustment of the mA and/or kV according to patient size, use of iterative reconstruction technique) 2010 [employer]- All Rights Reserved Reading location - IP/workstation name: [email or web address]
--- NOTE | 2018-10-30 19:46 | EKG REPORT ---
SEVERITY:- NORMAL ECG - SINUS RHYTHM : Confirmed by: Haydee Ojeda MD 30-Oct-2018 19:45:54
[2018-10-30 22:23] LABS: APPEARANCE,URINE CLEAR; BILIRUBIN,URINE NEGATIVE (NEGATIVE); COLOR,URINE YELLOW; GLUCOSE, URINE NEGATIVE (NEGATIVE); KETONES,URINE NEGATIVE (NEGATIVE); LEUKOCYTE ESTERASE,URINE NEGATIVE (NEGATIVE); NITRITE,URINE NEGATIVE (NEGATIVE); PROTEIN,URINE NEGATIVE (NEGATIVE); URINE SPECIFIC GRAVITY 1.015; UROBILINOGEN,URINE NEGATIVE mg/dL (<2.0)
[2018-10-30] MEDS ORDERED: DIAZEPAM INJ 10 MG/2 ML DISP.SYRIN IV PRN (22:27)
[2018-10-30] MEDS ORDERED: MAG HYDROX/AL HYDROX/SIMETH SUSP 30 ML UDCUP PO PRN (22:27)
[2018-10-30] MEDS ORDERED: IPRATROPIUM/ALBUTEROL 0.5-2.5 MG/3 ML AMPUL NEB PRN (22:27)
[2018-10-30] MEDS ORDERED: ACETAMINOPHEN 325 MG TABLET PO PRN (22:27)
[2018-10-30] MEDS ORDERED: LORAZEPAM INJ 2 MG/1 ML VIAL IV PRN (22:27)
[2018-10-30 22:47] LABS: URINE AMPHETAMINES SCREEN NEGATIVE; URINE BARBITURATES SCREEN NEGATIVE; URINE BENZODIAZEPINES SCREEN NEGATIVE; URINE COCAINE SCREEN NEGATIVE; URINE MARIJUANA (THC) SCREEN NEGATIVE; URINE METHADONE SCREEN NEGATIVE; URINE PHENCYCLIDINE SCREEN NEGATIVE
[2018-10-30] MEDS ORDERED: DIAZEPAM INJ 10 MG/2 ML DISP.SYRIN ONE (23:10)
[2018-10-31 04:40] LABS: ABSOLUTE EOSINOPHILS # (AUTO) 0.4 10^3/uL (0.0-0.6); ABSOLUTE LYMPHOCYTES (AUTO) 2.4 10^3/uL (0.5-4.7); ABSOLUTE MONOCYTES (AUTO) 0.6 10^3/uL (0.1-1.4); BASOPHILS % (AUTO) 0.3 % (0-2); EOSINOPHILS % (AUTO) 6.4 % (0-6); HEMATOCRIT 39.5 % (37.9-51.0); HEMOGLOBIN 12.8 g/dL (13.5-17.0); LYMPHOCYTES % (AUTO) 37.2 % (13-45); MEAN CORPUSCULAR HEMOGLOBIN 28.3 pg (27.0-33.4); MEAN CORPUSCULAR HGB CONC 32.5 g/dL (32.0-36.0); MEAN CORPUSCULAR VOLUME 87 fl (80-97); MONOCYTES % (AUTO) 9.1 % (3-13); PLATELET COUNT 238 10^3/uL (150-450); RED BLOOD COUNT 4.54 10^6/uL (4.35-5.55); RED CELL DISTRIBUTION WIDTH 13.9 % (11.5-14.0); TOTAL CELLS COUNTED % (AUTO) 100 %; WHITE BLOOD COUNT 6.4 10^3/uL (4.0-10.5)
[2018-10-31 04:53] LABS: ANION GAP 9 (5-19); BLOOD UREA NITROGEN 13 mg/dL (7-20); CALCIUM 8.7 mg/dL (8.4-10.2); CARBON DIOXIDE 23 mmol/L (22-30); CHLORIDE 110 mmol/L (98-107); GLUCOSE 75 mg/dL (75-110); POTASSIUM 3.8 mmol/L (3.6-5.0)
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
[2018-10-31] MEDS: HEPARIN SOD (PORCINE) 5,000 UNIT/ML 1 ML VIAL SUBCUT SCH ×2 (06:40→13:05)
[2018-10-31] MEDS: IPRATROPIUM/ALBUTEROL 0.5-2.5 MG/3 ML AMPUL NEB SCH ×2 (08:35→20:11)
[2018-10-31] MEDS ORDERED: DIAZEPAM INJ 10 MG/2 ML DISP.SYRIN IV SCH ×2 (10:00)
[2018-10-31] MEDS: NORMAL SALINE 1000 ML 1,000 ML IV PRN ×2 (10:41→13:06)
[2018-10-31] MEDS ORDERED: NICOTINE 21 MG/24 HR PATCH.TD24 TD SCH (12:45)
[2018-10-31] MEDS ORDERED: LORAZEPAM INJ 2 MG/1 ML VIAL IV PRN (13:38)
[2018-10-31 15:51] VITALS: BP 138/79
--- NOTE | 2018-10-31 19:00 | PDOC DISCHARGE SUMMARY ---
General - Admit/Disc Date/PCP Admission Date/Primary Care Provider: 10/30/18 22:42 RAFIA KRISHNAMURTHY Discharge Date: 10/31/18 - Discharge Diagnosis (1) Alcohol abuse with intoxication Is this a current diagnosis for this admission?: Yes Summary: He was IVC to the ER last night because he was intoxicated and wanted to go home the ER provider did not think he was making a good decision. He slept at all today and was alert and oriented x3 and did not seem to pose a danger to himself or others. He denies suicidal ideation or homicidal ideation or any thoughts of self-harm. He denies any desire to stop drinking. IVC was rescinded and he was discharged home. - Additional Information Resuscitation Status: Full Code Discharge Diet: Cardiac Discharge Activity: Activity As Tolerated, No Driving, No tub bath Home Medications: Albuterol Sulfate [Proair HFA] 2 puff IH Q6HP PRN 01/06/17 Amlodipine Besylate [Norvasc 5 mg Tablet] 5 mg PO DAILY 01/06/17 Atorvastatin Calcium [Lipitor 40 mg Tablet] 40 mg PO QPM 01/06/17 Ergocalciferol (Vitamin D2) [Drisdol 50,000 unit (1.25MG) Capsule] 50,000 units PO MO 01/06/17 Lisinopril/Hydrochlorothiazide [Zestoretic 20-25 mg Tablet] 1 tab PO DAILY 01/06/17 Loratadine [Claritin 10 mg Tablet] 10 mg PO DAILY 01/06/17 Nitroglycerin [Nitrostat] 0.4 mg SL Q5MP PRN 01/06/17 Omeprazole 20 mg PO DAILY 01/06/17 History of Present Illness History of Present Illness: TONE PATEL is a 58 year old male with a history of hypertension, dyslipidemia, COPD, GERD, chronic pain, tobacco and alcohol dependence. He presents with altered mental status and rhonchi he is brought to the emergency room for evaluation found to have acute alcohol intoxication blood alcohol level of 270. He is confused and unable to recognize family members. He wishes to leave AMA but is IVC and referred to the hospitalist for admission. Patient is a poor historian and unable to provide history after sedation for concern of alcohol withdrawal then referred to the hospitalist for admission Hospital Course Hospital Course: We kept him in the hospital today and we let the alcohol get out of his system along with some the other drugs he was given in the ER. He did not show any signs of seizure or any signs of alcohol withdrawal. He woke up and was able to tell me his full name, his date of , his street address, what city he was in, the date, and who the president was. He denies any thoughts of self-harm or of harming others. There was no witnessed seizure. I spoke to his sister and his girlfriend, and the story that I got was that he had been drinking yesterday and he was sitting outside on the porch and told 1 of them he wanted a hamburger. The girlfriend stepped inside for just a minute and then came back out asked him a question not even a minute later, and he was snoring and would not wake up. He otherwise did not appear to be in any distress, but it was troubling for them to see him like that so they called EMS. He says that he drinks heavy, usually 1/5 or 2 a day, and he said he been drinking pretty heavy yesterday. His sister said that he also takes home pain medication, but the patient did not admit to taking any of that yesterday. For the reasons mentioned above, his IVC was then rescinded, and since he does not wish for a medical detox, he is being discharged home. Physical Exam Vital Signs: Temp Pulse Resp BP Pulse Ox 98.4 F 88 19 138/79 H 100 10/31/18 18:31 10/31/18 18:31 10/31/18 18:31 10/31/18 15:48 10/31/18 18:31 Intake & Output 10/30/18 10/31/18 11/01/18 06:59 06:59 06:59 Intake Total 1360 Output Total 275 Balance -275 1360 Weight 70.5 kg General appearance: PRESENT: no acute distress, cooperative, disheveled Respiratory exam: PRESENT: clear to auscultation niki, symmetrical, unlabored. ABSENT: accessory muscle use, chest wall tenderness, crackles, prolonged expiratory phas, rhonchi, tachypnea, wheezes Cardiovascular exam: PRESENT: RRR, +S1, +S2 Pulses: PRESENT: normal carotid pulses Vascular exam: PRESENT: normal capillary refill GI/Abdominal exam: PRESENT: normal bowel sounds, soft. ABSENT: distended, guarding, rebound, tenderness Extremities exam: ABSENT: clubbing, pedal edema Musculoskeletal exam: PRESENT: normal inspection. ABSENT: deformity Neurological exam: PRESENT: awake, oriented to person, oriented to place, oriented to time, oriented to situation Psychiatric exam: PRESENT: flat affect Skin exam: PRESENT: dry, warm Results Laboratory Results: 10/31/18 04:28 10/31/18 04:28 10/30/18 10/30/18 10/31/18 15:52 22:04 04:28 WBC 6.4 RBC 4.54 Hgb 12.8 L Hct 39.5 MCV 87 MCH 28.3 MCHC 32.5 RDW 13.9 Plt Count 238 Seg Neutrophils % 47.0 Sodium Potassium Chloride Carbon Dioxide Anion Gap BUN Creatinine Est GFR ( Amer) Glucose Calcium TSH 1.39 Urine Color YELLOW Urine Appearance CLEAR Urine pH 5.0 Ur Specific [place] 1.015 Urine Protein NEGATIVE Urine Glucose (UA) NEGATIVE Urine Ketones NEGATIVE Urine Blood MODERATE H Urine Nitrite NEGATIVE Ur Leukocyte Esterase NEGATIVE Urine WBC (Auto) 1 Urine RBC (Auto) 1 10/31/18 04:28 WBC RBC Hgb Hct MCV MCH MCHC RDW Plt Count Seg Neutrophils % Sodium 141.7 Potassium 3.8 Chloride 110 H Carbon Dioxide 23 Anion Gap 9 BUN 13 Creatinine 0.79 Est GFR ( Amer) > 60 Glucose 75 Calcium 8.7 TSH Urine Color Urine Appearance Urine pH Ur Specific [place] Urine Protein Urine Glucose (UA) Urine Ketones Urine Blood Urine Nitrite Ur Leukocyte Esterase Urine WBC (Auto) Urine RBC (Auto) Impressions: Head CT 10/30/18 16:03 IMPRESSION: No hemorrhage. No midline shift. Scattered Areas of low density in the white matter most likely due to chronic micro-vascular ischemic change. No evidence for acute large vessel infarction. EVIDENCE OF ACUTE STROKE: NO. Qualifiers - * PATIENT BEING DISCHARGED WITH ANY OF THE FOLLOWING DIAGNOSIS: No Acute Heart Failure - Is this a Heart Failure Patient?: No Plan Time Spent: Greater than 30 Minutes
== END 2018-10-31 22:45 | disposition home or self-care (01) | DRG 897 ==
LOC: ER 15:31 → EH 22:42 → 3N 23:54 → EH 10-31 00:08 → 3N 10-31 00:36
PROVIDERS: ADMIT Internal Medicine; ATTEND Internal Medicine
DX: F10.229 Alcohol dependence with intoxication, unspecified (principal); R41.82 Altered mental status, unspecified; I25.10 Atherosclerotic heart disease of native coronary artery without angina pectoris; E78.00 Pure hypercholesterolemia, unspecified; I10 Essential (primary) hypertension; J44.9 Chronic obstructive pulmonary disease, unspecified; F17.210 Nicotine dependence, cigarettes, uncomplicated; K21.9 Gastro-esophageal reflux disease without esophagitis; Y90.8 Blood alcohol level of 240 mg/100 ml or more; I25.2 Old myocardial infarction; Z79.891 Long term (current) use of opiate analgesic; Z79.51 Long term (current) use of inhaled steroids; Z79.899 Other long term (current) drug therapy
CPT/HCPCS: 36415; 70450; 80048; 80053; 80307; 81001; 82962; 83735; 84443; 85025; 93005; 93010; 94640; 96374; 99285; J1644; J2060; J3360; J7030; J7620

== ENCOUNTER 2018-11-01 21:59 | Emergency (ER) | payer MEDICAID ==
[2018-11-01] MEDS ORDERED: ASPIRIN 81 MG TABLET, CHEWABLE PO ONE (22:00)
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
--- NOTE | 2018-11-01 22:57 | RADIOLOGY REPORT (SQ) ---
EXAM DESCRIPTION: CLINICAL HISTORY: 58 years Male, cp COMPARISON: 12/15/2018.. FINDINGS: Borderline heart size. No suspicious mediastinal widening. Prominence of interstitial markings in both lung bases associated with bronchial wall thickening. Worse compared to 12/15/2017. IMPRESSION: Abnormal lower lobe lung parenchyma suspicious for CHF. Infectious process is less likely.
[2018-11-01 23:14] LABS: INTERNATIONAL RATION (INR) 1.02; PROTHROMBIN TIME 13.4 SEC (11.4-15.4)
[2018-11-01 23:24] LABS: ALKALINE PHOSPHATASE 59 U/L (38-126); ANION GAP 10 (5-19); ASPARTATE AMINO TRANSFERASE 43 U/L (17-59); BILIRUBIN,DIRECT 0.1 mg/dL (0.0-0.4); BILIRUBIN,TOTAL 0.7 mg/dL (0.2-1.3); BLOOD UREA NITROGEN 9 mg/dL (7-20); CALCIUM 9.2 mg/dL (8.4-10.2); CARBON DIOXIDE 22 mmol/L (22-30); CHLORIDE 111 mmol/L (98-107); CREATINE KINASE 182 U/L (55-170); GLUCOSE 99 mg/dL (75-110); POTASSIUM 3.8 mmol/L (3.6-5.0); TOTAL PROTEIN 6.5 g/dL (6.3-8.2)
[2018-11-01 23:35] LABS: ABSOLUTE BASOPHILS # (AUTO) 0.1 10^3/uL (0.0-0.2); ABSOLUTE EOSINOPHILS # (AUTO) 0.3 10^3/uL (0.0-0.6); ABSOLUTE LYMPHOCYTES (AUTO) 2.3 10^3/uL (0.5-4.7); ABSOLUTE MONOCYTES (AUTO) 0.5 10^3/uL (0.1-1.4); ABSOLUTE NEUT (AUTO) 2.5 10^3/uL (1.7-8.2); CREATINE KINASE MB 0.62 ng/mL (<4.55); EOSINOPHILS % (AUTO) 5.3 % (0-6); HEMATOCRIT 39.7 % (37.9-51.0); HEMOGLOBIN 13.1 g/dL (13.5-17.0); MEAN CORPUSCULAR HEMOGLOBIN 28.6 pg (27.0-33.4); MEAN CORPUSCULAR VOLUME 87 fl (80-97); MONOCYTES % (AUTO) 8.8 % (3-13); PLATELET COUNT 241 10^3/uL (150-450); RED BLOOD COUNT 4.58 10^6/uL (4.35-5.55); RED CELL DISTRIBUTION WIDTH 13.6 % (11.5-14.0); SEGMENTED NEUTROPHILS % (AUTO) 43.9 % (42-78); TOTAL CELLS COUNTED % (AUTO) 100 %; WHITE BLOOD COUNT 5.7 10^3/uL (4.0-10.5)
[2018-11-01 23:38] LABS: TROPONIN I < 0.012 ng/mL
[2018-11-02 00:38] VITALS: BP 110/54
--- NOTE | 2018-11-02 07:53 | EKG REPORT ---
SEVERITY:- OTHERWISE NORMAL ECG - SINUS ARRHYTHMIA, RATE 53-80 : Confirmed by: Broderick Hammond MD 02-Nov-2018 07:52:32
== END 2018-11-02 01:20 | disposition left against medical advice (07) ==
LOC: ER 21:59
DX: F10.129 Alcohol abuse with intoxication, unspecified (principal); R07.9 Chest pain, unspecified; I25.10 Atherosclerotic heart disease of native coronary artery without angina pectoris; E78.00 Pure hypercholesterolemia, unspecified; I10 Essential (primary) hypertension; E10.9 Type 1 diabetes mellitus without complications; Z88.6 Allergy status to analgesic agent; I25.2 Old myocardial infarction
CPT/HCPCS: 36415; 71045; 80053; 82550; 82553; 84484; 85025; 85610; 93005; 93010; 99281

== ENCOUNTER 2019-11-21 21:54 | Emergency (ER) | payer MEDICAID ==
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
[2019-11-21] MEDS ORDERED: IPRATROPIUM/ALBUTEROL 0.5-2.5 MG/3 ML AMPUL NEB ONE (22:41)
[2019-11-21] MEDS ORDERED: PREDNISONE 20 MG TABLET PO ONE (22:41)
--- NOTE | 2019-11-22 00:22 | RADIOLOGY REPORT (SQ) ---
EXAM DESCRIPTION: X-RAY CHEST- One View CLINICAL HISTORY: Shortness of breath COMPARISON: November 01, 2018 TECHNIQUE: Single view of the chest. FINDINGS: There are overlying EKG leads. Redemonstration of patchy opacities overlying the bilateral lower lung zones with slight interval increase in prominence of discoid opacity overlying the left lower lobe. The pulmonary vascularity and the cardiomediastinal silhouette are stable in appearance. Osseous structures are unchanged. IMPRESSION: Redemonstration of patchy bibasilar opacities with slight interval increase in prominence of discoid opacity overlying the left lower lung zone. Findings are nonspecific and differential diagnosis includes infectious and inflammatory causes. Clinical correlation is advised with consideration for attention on follow-up.
[2019-11-22] MEDS ORDERED: IPRATROPIUM/ALBUTEROL 0.5-2.5 MG/3 ML AMPUL NEB ONE (00:39)
[2019-11-22 01:12] VITALS: BP 123/66
== END 2019-11-22 01:22 | disposition home or self-care (01) ==
LOC: ER 21:54
DX: J44.1 Chronic obstructive pulmonary disease with (acute) exacerbation (principal); R06.02 Shortness of breath; R05 Cough; I25.10 Atherosclerotic heart disease of native coronary artery without angina pectoris; I10 Essential (primary) hypertension; I25.2 Old myocardial infarction; E10.9 Type 1 diabetes mellitus without complications; F17.200 Nicotine dependence, unspecified, uncomplicated; Z71.6 Tobacco abuse counseling; Z77.090 Contact with and (suspected) exposure to asbestos; Z85.3 Personal history of malignant neoplasm of breast; Z88.6 Allergy status to analgesic agent; Z88.5 Allergy status to narcotic agent
CPT/HCPCS: 94640 ×2; 99284; 71045; J7512